=== PATIENT | female | born 1955 | race Caucasian/White ===

== ENCOUNTER 2019-07-30 17:37 | Inpatient (IN) | payer OTHER ==
[~2019-07-30] VITALS: Ht 165.1 cm; Wt 51.7 kg
[~2019-07-30 17:37] MED LIST: ASPI81CH PO; ATOR40TA PO; CEFP200 PO; DIPATR PO; DOCU100 PO; DOXY100 PO; FIBE4P PO; FLUO10 PO; FLUO20 PO; GUAI600T33 PO; HYDACE5 PO; LAVAP17G PO; LISI20 PO; Lopressor 50 mg50 MG PO; METO25ER PO; METO50 PO; PARO20 PO; PRED10 PO; Percocet 10-321 EACH PO; RXHYDACE PO; SACC250C PO; VITAMIN D-32000 UNIT PO; Zofran Odt4 MG SL
[2019-07-30 18:00] LABS: BASOPHILS ABSOLUTE AUTO 0.05 K/mm3 (0.00-0.23); BASOPHILS PERCENT AUTO 1 % (0-2); EOSINOPHILS ABSOLUTE AUTO 0.01 K/mm3 (0.00-0.68); EOSINOPHILS PERCENT AUTO 0 % (0-6); Hematocrit 48.2 % (33.0-51.0); Hemoglobin 15.7 g/dL (11.5-16.0); IMMATURE GRAN ABSOLUTE AUTO 0.04 K/mm3 (0.00-0.10); IMMATURE GRAN PERCENT AUTO 0 % (0-1); LYMPHOCYTES PERCENT AUTO 13 % (21-46); MONOCYTES ABSOLUTE AUTO 1.02 K/mm3 (0.16-1.47); MONOCYTES PERCENT AUTO 10 % (4-13); Mean Corpuscular HGB 29.6 pg (26.0-34.0); Mean Corpuscular HGB Conc 32.6 g/dL (31.5-36.5); Mean Corpuscular Volume 91 fL (80-100); Mean Platelet Volume 11.5 fL (9.1-12.4); NEUTROPHILS ABSOLUTE AUTO 7.77 K/mm3 (1.96-9.15); NEUTROPHILS PERCENT AUTO 76 % (41-73); Platelet Count 242 K/mm3 (150-400); RDW Coefficient Variation 14.4 % (11.7-14.2); RDW Standard Deviation 48.4 fL (35.1-46.3); Red Blood Cell Count 5.31 M/mm3 (3.80-5.20); White Blood Cell Count 10.19 K/mm3 (4.00-11.30)
[2019-07-30 18:11] LABS: Source, Urine Catheter
[2019-07-30 18:14] LABS: Appearance, Urine Hazy (Clear); Blood, Urine 4+ (Neg); Color, Urine Yellow (P-Yellow); Glucose Qualitative, Urine Neg (Neg); Ketones, Urine 1+ (Neg); Leukocyte Esterase, Urine 3+ (Neg); Nitrite, Urine Neg (Neg); Protein, Urine 4+ (Neg); Urobilinogen, Urine 1+ (Normal)
[2019-07-30 18:20] LABS: Bilirubin, Urine 1+ (Neg)
[2019-07-30 18:21] LABS: White Blood Cells, Urine TNTC /hpf (0-5)
[2019-07-30 18:22] LABS: Bacteria Many /hpf; Squamous Epithelial Cells Few /hpf (Few); Transitional Epithelial Cells Few /hpf (0-Rare)
[2019-07-30 18:24] LABS: Alanine Aminotransfer (ALT/SGP 15 U/L (12-78); Albumin/Globulin Ratio 1.2 (0.8-1.8); Alk Phos 128 U/L (50-136); Anion Gap 8 mmol/L (6-16); Aspartate Aminotrans (AST/SGOT 25 U/L (12-37); Bilirubin, Total 1.6 mg/dL (0.1-1.0); Blood Urea Nitrogen 15 mg/dL (8-24); Bun/Creatinine Ratio 14.2 (12.0-20.0); CO2, Blood 26 mmol/L (21-32); Calcium, Blood 9.6 mg/dL (8.5-10.1); Chloride, Blood 102 mmol/L (98-108); Creatinine, Blood 1.06 mg/dL (0.40-1.00); Ethanol (Alcohol), Blood, Med <3 mg/dL; Globulin, Blood 3.3 g/dL (2.2-4.0); Glomerular Filtration Rate 55 (60-); Glucose, Blood 133 mg/dL (70-99); Sodium, Blood 136 mmol/L (136-145); Total Protein, Blood 7.3 g/dL (6.4-8.2)
[2019-07-30 18:27] LABS: International Normalized Ratio 1.19; Prothrombin Time Results 12.4 Sec (9.7-11.5)
[2019-07-30 18:30] LABS: Creatine Kinase MB 1.6 ng/mL (0.0-3.6); Creatine Kinase MB Index 1.2 (0.0-4.0)
[2019-07-30 18:31] LABS: U Amphetamine Screen Not Detected; U Barbituate Screen Not Detected; U Benzodiazapine Screen Not Detected; U Buprenorphine Screen Not Detected; U Cannabinoids Screen Not Detected; U Cocaine Screen Not Detected; U Methadone Screen Not Detected; U Methamphetamine Screen Not Detected; U Opiates Screen Not Detected; U Oxycodone Screen Not Detected; U Phencyclidine Screen Not Detected; U Propoxyphene Screen Not Detected
[2019-07-31] MEDS ORDERED: METO100ER PO (08:05)
[2019-07-31] MEDS ORDERED: TAMS.4ER PO (15:20)
[2019-07-31] MEDS ORDERED: DOC250 PO (15:22)
[2019-07-31] MEDS ORDERED: VITAMIN D31000 UNI2 PO (15:24)
--- NOTE | 2019-07-31 17:30 | NUR ---
SHIFT SUMMARY 1310 PT RECEIVED FROM ER. ALERT TO SELF ONLY, FOLLOWING SOME COMMANDS OFF AND ON. DENIES PAIN THROUGHOUT THE DAY. LUNG SOUNDS CLEAR, DIMINISHED BASES. NSR WITH PVCs NOTED ON TELEMETRY, RATE 70s, MURMUR NOTED ON AUSCULTATION. WEAKNESS TO BUE AND BLE, WEAKNESS IS GREATER ON THE LEFT SIDE D/T HX OF CVA IN JANUARY PER FAMILY. ATTENDS IN PLACE. PT SLEEPING IN BED THIS AFTERNOON. WILL CONTINUE TO MONITOR AND REPORT OFF.
--- NOTE | 2019-07-31 20:42 | NUR ---
Assumed care of pt at approx 1900. Upon initial assessment, pt lying HOB at 15, eyes closed. Pt not repsonsive to verbal stim at initial assessment. Opens eyes to strong touch, does not need pain to respond. VS show HTN. PM dose of metoprolol given, will continue to monitor BP. All other VSS. Pt minimally alert, not oriented. When asked for name and date of , pt stares ahead and does not respond. When asked "is your name Mery?" pt states "Taco". When asked for pt replies "no". Pt does not answer appropriately to questions, follows some simple commands but not all. Pt with dry mucous membranes. Will call provider and suggest IV fluids. Will update with further changes. Monitoring and providing care per orders. See shift assessment for detailed assessment.
[2019-08-01 04:37] LABS: BASOPHILS ABSOLUTE AUTO 0.05 K/mm3 (0.00-0.23); BASOPHILS PERCENT AUTO 1 % (0-2); EOSINOPHILS ABSOLUTE AUTO 0.07 K/mm3 (0.00-0.68); EOSINOPHILS PERCENT AUTO 1 % (0-6); Hematocrit 42.6 % (33.0-51.0); Hemoglobin 13.9 g/dL (11.5-16.0); IMMATURE GRAN ABSOLUTE AUTO 0.01 K/mm3 (0.00-0.10); IMMATURE GRAN PERCENT AUTO 0 % (0-1); LYMPHOCYTES ABSOLUTE AUTO 1.81 K/mm3 (0.84-5.20); LYMPHOCYTES PERCENT AUTO 27 % (21-46); MONOCYTES ABSOLUTE AUTO 0.77 K/mm3 (0.16-1.47); MONOCYTES PERCENT AUTO 11 % (4-13); Mean Corpuscular HGB 29.5 pg (26.0-34.0); Mean Corpuscular HGB Conc 32.6 g/dL (31.5-36.5); Mean Corpuscular Volume 90 fL (80-100); Mean Platelet Volume 12.2 fL (9.1-12.4); NEUTROPHILS ABSOLUTE AUTO 4.04 K/mm3 (1.96-9.15); NEUTROPHILS PERCENT AUTO 60 % (41-73); Platelet Count 198 K/mm3 (150-400); RDW Coefficient Variation 14.3 % (11.7-14.2); RDW Standard Deviation 47.8 fL (35.1-46.3); Red Blood Cell Count 4.71 M/mm3 (3.80-5.20); White Blood Cell Count 6.75 K/mm3 (4.00-11.30)
[2019-08-01 04:55] LABS: Albumin, Blood 3.2 g/dL (3.4-5.0); Albumin/Globulin Ratio 1.1 (0.8-1.8); Bilirubin, Total 0.9 mg/dL (0.1-1.0); Bun/Creatinine Ratio 21.5 (12.0-20.0); Calcium, Blood 8.7 mg/dL (8.5-10.1); Creatinine, Blood 1.07 mg/dL (0.40-1.00); Total Protein, Blood 6.2 g/dL (6.4-8.2)
--- NOTE | 2019-08-01 06:23 | NUR ---
Shift Summary Pt with improving mental status this shift. As shift continued, pt became more alert, remains not oriented to place, time/date, event. Pt only oriented to person, cannot recall . Pt continues to respond inappropriately to questions, does not follow directions well, laughs inappropriately very suddenly. The noteable improvement this shift is her alertness and ability to track a conversation, however she does not participate in the conversation. VSS. Pt restless when awake, grabbing at lines. Pt pulled PIV at approx 0545, blood all over pt and bedding. Bed bath given, new IV placed, IV fluids not infusing at this time because pt is currently aggitated and refusing IV fluids. Will pass on to day RN that approx 400 ml left to be infused per orders. Pt incont of bowel/bladder. One complete saturation of attends this shift. Breathing remains without acute changes this shift. Pt with K+ of 3.0 this shift, MD notified and orders recieved for 40meq PO x1. Pt currently refusing PO medication. Will pass on to day RN that medication is yet to be given. Will continue to monitor and provide care per orders until Day RN assumes care.
--- NOTE | 2019-08-01 08:00 | NUR ---
PT RESTING IN BED THIS AM. RESPONDS TO VERBAL STIMULI, BUT IS LETHARGIC AND FALLS BACK TO SLEEP EASILY. ORIENTED TO SELF ONLY, BUT ABLE TO TELL THIS RN FIRST NAME AND MONTH. FOLLOWING COMMANDS APPROPRIATELY. LUNG SOUNDS CLEAR, DIMINISHED BASES. NSR RATE 70s ON TELEMETRY, MURMUR NOTED. WEAKNESS NOTED THROUGHOUT, BUT IMPROVED FROM YESTERDAY. WILL CONTINUE TO MONITOR. CALL LIGHT IN REACH.
--- NOTE | 2019-08-01 10:08 | NUR ---
FAMILY CONTACT SPOKE TO SISTER RICHARD OVER THE PHONE AND PROVIDED AN UPDATE. PT RESTING IN BED WITH EYES CLOSED, RESPIRATIONS EVEN AND UNLABORED.
--- NOTE | 2019-08-01 17:48 | NUR ---
SHIFT SUMMARY PT RESTING IN BED THROUGHOUT THE DAY. VSS. MORE ALERT TODAY, ORIENTED TO SELF ONLY. WEAKNESS TO BLE AND BUE, BUT STRONGER THAN YESTERDAY. FOLLOWING COMMANDS APPROPRIATELY THE MAJORITY OF TIME, BUT NEEDS REPETITION TO FOLLOW COMMANDS. PT HAD A VERY GOOD APPETITE TODAY. PT UNABLE TO TOLERATE MRI D/T CONFUSION AND ANXIETY, PER NIGHT SHIFT SUPERVISOR PT BECAME COMBATIVE AND CLIMBED OUT OF THE MRI MACHINE. LUNG SOUNDS CLEAR, DIMINISHED BASES. NSR RATE 70s PER TELEMETRY, MURMUR NOTED ON AUSCULTATION. UPDATES GIVEN TO SISTER VIA PHONE. WILL CONTINUE TO MONITOR AND REPORT OFF TO CHANGE COORDINATOR RN.
--- NOTE | 2019-08-01 19:49 | NUR ---
Phone call recieved from Pt's Nephews ex , Clarissa, requesting information on pt. Pt unable at this time to verify if information can be given to this person, no verbal release of information has been signed d/t pt mentation status. Relative of Pt instructed to speak with pt's sister for information regarding pt. Relative verbalized understanding, cooperative and kind with instruction.
--- NOTE | 2019-08-01 22:16 | NUR ---
Provider Remigio Amos called regarding IV Potassium 20meq that was ordered at approx 1100, not documented as given. Provider notified of PO K+ 40 meq given at approx 0930. Provider notified of K+ lab result of 3.0 at at approx 0400, no K+ recheck ordered or obtained this day. Provider Dandre states to give IV K+ 20meq to pt and states no lab recheck necessary at this time. Will give per orders.
--- NOTE | 2019-08-02 01:22 | NUR ---
Update: Pt remains with improved neuro status compared to previous mine shifter, she is alert and oriented to person, family, surroundings. Pt is impulsive and restless this shift, pulling at BITA IV frequently. Pt redirecatable, but foregets redirection quickly. Interventions in place to minimize risk of pt pulling out IV such at coban in place to move tubing out of sight, TV for distraction, frequent rounding to ensure pt safety. K+ infusing at this time per orders. No acute declines to note at this time. Will continue monitoring and providing care per orders.
--- NOTE | 2019-08-02 03:57 | NUR ---
HTN and TACHYCARDIA PT IN SINUS TACH BETWEEN 110-125 AT APPROX 0205; ASYMPTOMATIC. THIS RN ASSESSED VITALS AT APPROX 0330; HTN NOTED AT 190/109, HR REMAINS TACHYCARDIC. FLUIDS ON STANDBY, AND LABETOLOL GIVEN PER ORDERS WITH NO IMPROVEMENT. CALL OUT TO DR. LU. AWAITING CALL BACK AT THIS TIME.
--- NOTE | 2019-08-02 05:06 | NUR ---
SHIFT SUMMARY Pt with eventful night. To note: change in heart rhtyhm from NSR in 70's to sinus tach in 120's touching 130 at times. Pt also with HTN as documented. HTN has since resolved. Pt back and forth with HR, at 0509 pt converted back to NSR at 70, but pt aggitated from attends change quickly after and back to 110's. This pt has been attempting to exit the bed, setting off the bed alarm frequently this night. Pt redirected multiple times but does not comprehend or retain redirection. This RN, the PCT, and the blister rust eradicator have been in with pt consistantly this shift attempting to keep pt in bed and safe. Pt with frequent attends changes d/t incont. Each attends change have been very saturated. All other VSS, pt remains alert and oriented as documented, no changes noted to mentation apart from previously noted in shift notes. Pt has not slept this shift. Will continue to monitor pt, provide care per orders and clinical judegment until day RN assumes care.
[2019-08-02 05:48] LABS: Anion Gap 7 mmol/L (6-16); Blood Urea Nitrogen 17 mg/dL (8-24); Bun/Creatinine Ratio 19.7 (12.0-20.0); CO2, Blood 24 mmol/L (21-32); Calcium, Blood 8.5 mg/dL (8.5-10.1); Chloride, Blood 108 mmol/L (98-108); Creatinine, Blood 0.87 mg/dL (0.40-1.00); Glomerular Filtration Rate >60 (60-); Glucose, Blood 99 mg/dL (70-99); Potassium, Blood 3.4 mmol/L (3.5-5.5); Sodium, Blood 139 mmol/L (136-145)
--- NOTE | 2019-08-02 09:31 | NUR ---
PT REMAINS ASLEEP, PT WITH A RESTLESS NIGHT, WILL ADMINISTER 0900 MEDICATIONS WHEN PT AWAKES PT WAS VERY CONFUSED T/O THE NIGHT TO DECREASE ASIPRATION RISK
--- NOTE | 2019-08-02 18:41 | NUR ---
SHIFT NOTE PT WAS UP TO CHAIR FOR SEVERAL HOURS TODAY WHICH WAS TOLERATED WEL. PT USED CALL LIGHT NEED AND APPRORIATE, TAG ALARM WAS IN PLACE BUT PT DID NOT ATTEMPT TO GET OUT OF CHAIR, CALLED FOR ASSITANCE WHEN SHE WAS READY TOP GET BACK TO BED. PT DID EXPRESS THAT SHE KNEW HER BIRTHDAY, HER FULL NAME AND THAT SHE WAS IN THE HOSPITAL TODAY. PT WAS CALLING OUT FOR HER DOG, IS QUITE CONCERNED THAT HER DOG NASRIN HAS GONE MISSING, PT IS REASSURED BY THIS RN THAT DOG IS BEING CARED FOR. PT OTHERWISE SLEPT T/O THE DINNER. ATE A GOOD PORTION OF HER BREAKFAST AND LLUNCH, DID REFUSE DINNER TRAY STS THAT SHE WANTS TO SLEEP. VITAL WERE THEN ASSESSED AND PT TUCKED INTO BED. UPON WAKING THIS AM PT WAS CONFUSED AND BATTING AT STAFF WHILE ATTEMPTING TO CARE FOR HER, BUT SHE WAS AWAKE FOR A WHILE HER MENTATION SEEMED TO CLEAR. IV REMAINS SHIELDED WITH COBAN TO AVOID HER PULLING AT IT, ALTHOUGH PT WAS NOT OBSERVED PULLING AT IT DURING THIS SHIFT. CONNIE CHEEK DID CONTACT APS PT HAS BEEN LIVING ALONE WHILE CAREGIVER IS OUT OF STATE, APS DID NOT RETURN CALL TO MY KNOWLEDGE TODAY. VSS DURING THIS SHIFT.
--- NOTE | 2019-08-03 06:22 | NUR ---
ASSUMED CARE APPROXIMATELY 191; PT ALERT AND ORIENTED TO SELF; CONFUSED; AT TIMES SEEMS APPREHENSIVE OF CARE; PT INCONTINENT W/ BRIEF IN PLACE; PT ON RA W/ O2 SATS >90; PT C/O BP CUFF AND TENSES ARMS AND PULLS AWAY; RADIAL CUFF PLACED AND VITAL SIGN ASSESSMENT BECAME EASIER W/ LESS RESISTANCE; PT TURNED SELF IN NIGHT; SLEPT SEVERAL HOURS; BED ALARM ON; CALL LIGHT IN REACH; BED IN LOWEST POSITION; WILL CONTINUE TO MONITOR AND ASSESS UNTIL DAY SHIFT RN.
[2019-08-03 06:39] LABS: BASOPHILS ABSOLUTE AUTO 0.06 K/mm3 (0.00-0.23); BASOPHILS PERCENT AUTO 1 % (0-2); EOSINOPHILS ABSOLUTE AUTO 0.37 K/mm3 (0.00-0.68); EOSINOPHILS PERCENT AUTO 5 % (0-6); Hematocrit 42.8 % (33.0-51.0); IMMATURE GRAN ABSOLUTE AUTO 0.01 K/mm3 (0.00-0.10); IMMATURE GRAN PERCENT AUTO 0 % (0-1); LYMPHOCYTES ABSOLUTE AUTO 2.04 K/mm3 (0.84-5.20); LYMPHOCYTES PERCENT AUTO 30 % (21-46); MONOCYTES ABSOLUTE AUTO 0.66 K/mm3 (0.16-1.47); MONOCYTES PERCENT AUTO 10 % (4-13); Mean Corpuscular HGB 29.4 pg (26.0-34.0); Mean Corpuscular HGB Conc 32.7 g/dL (31.5-36.5); Mean Corpuscular Volume 90 fL (80-100); NEUTROPHILS ABSOLUTE AUTO 3.74 K/mm3 (1.96-9.15); NEUTROPHILS PERCENT AUTO 54 % (41-73); Platelet Count 200 K/mm3 (150-400); RDW Coefficient Variation 14.4 % (11.7-14.2); RDW Standard Deviation 47.2 fL (35.1-46.3); Red Blood Cell Count 4.77 M/mm3 (3.80-5.20); White Blood Cell Count 6.88 K/mm3 (4.00-11.30)
[2019-08-03 07:01] LABS: Bun/Creatinine Ratio 19.6 (12.0-20.0); Calcium, Blood 8.7 mg/dL (8.5-10.1); Creatinine, Blood 1.07 mg/dL (0.40-1.00); Potassium, Blood 3.8 mmol/L (3.5-5.5)
[2019-08-03] MEDS ORDERED: CEFU500T30 PO (13:00)
== END 2019-08-03 15:45 | disposition home or self-care (01) | DRG 64 ==
LOC: ER 17:37 → ERHOLD 22:03 → PCU 22:03
PROVIDERS: Emergency Medicine; Internal Medicine; ADMIT Internal Medicine
DX: I63.9 Cerebral infarction, unspecified (principal); G92 Toxic encephalopathy; N39.0 Urinary tract infection, site not specified; E44.0 Moderate protein-calorie malnutrition; Z68.1 Body mass index [BMI] 19.9 or less, adult; Q21.1 Atrial septal defect; I16.0 Hypertensive urgency; B96.20 Unspecified Escherichia coli [E. coli] as the cause of diseases classified elsewhere; N18.3 Chronic kidney disease, stage 3 (moderate); E87.6 Hypokalemia; F03.90 Unspecified dementia, unspecified severity, without behavioral disturbance, psychotic disturbance, mood disturbance, and anxiety; E78.5 Hyperlipidemia, unspecified; F17.200 Nicotine dependence, unspecified, uncomplicated; Z86.73 Personal history of transient ischemic attack (TIA), and cerebral infarction without residual deficits; Z88.1 Allergy status to other antibiotic agents; Z88.0 Allergy status to penicillin; Z88.2 Allergy status to sulfonamides; Z79.82 Long term (current) use of aspirin; Z79.899 Other long term (current) drug therapy; I13.10 Hypertensive heart and chronic kidney disease without heart failure, with stage 1 through stage 4 chronic kidney disease, or unspecified chronic kidney disease
CPT/HCPCS: 36415; 70450; 70551; 71046; 80048; 80053; 81001; 82550; 82553; 84443; 85025; 85610; 85651; 85730; 86140; 87077; 87086; 87186; 93005; 93010; 93306; 93880; 96365-59; 96375-59; 96376-59; 99285-25; G0480; J0360; J0696; J1650; J3480; J7030; J7050

== ENCOUNTER 2020-02-29 12:37 | Inpatient (IN) | payer OTHER ==
[~2020-02-29] VITALS: Ht 165.1 cm; Wt 52.3 kg
[~2020-02-29 12:37] MED LIST changes: -ASPI81CH PO; +Aspirin EC81 MG PO; +CEFU500T30 PO; +DOC250 PO; +METO100ER PO; +TAMS.4ER PO; +VITAMIN D31000 UNI1 PO
[2020-02-29 13:15] LABS: BASOPHILS ABSOLUTE AUTO 0.03 K/mm3 (0.00-0.23); BASOPHILS PERCENT AUTO 0 % (0-2); EOSINOPHILS ABSOLUTE AUTO 0.02 K/mm3 (0.00-0.68); EOSINOPHILS PERCENT AUTO 0 % (0-6); Hematocrit 42.9 % (33.0-51.0); Hemoglobin 14.5 g/dL (11.5-16.0); IMMATURE GRAN ABSOLUTE AUTO 0.04 K/mm3 (0.00-0.10); IMMATURE GRAN PERCENT AUTO 0 % (0-1); LYMPHOCYTES ABSOLUTE AUTO 1.47 K/mm3 (0.84-5.20); LYMPHOCYTES PERCENT AUTO 12 % (21-46); MONOCYTES ABSOLUTE AUTO 1.06 K/mm3 (0.16-1.47); MONOCYTES PERCENT AUTO 9 % (4-13); Mean Corpuscular HGB Conc 33.8 g/dL (31.5-36.5); Mean Corpuscular Volume 92 fL (80-100); Mean Platelet Volume 11.6 fL (9.1-12.4); NEUTROPHILS PERCENT AUTO 79 % (41-73); Platelet Count 225 K/mm3 (150-400); RDW Coefficient Variation 13.1 % (11.7-14.2); RDW Standard Deviation 43.8 fL (35.1-46.3); Red Blood Cell Count 4.68 M/mm3 (3.80-5.20); White Blood Cell Count 12.42 K/mm3 (4.00-11.30)
[2020-02-29 13:32] LABS: International Normalized Ratio 1.05; Prothrombin Time Results 11.2 Sec (9.7-11.5)
[2020-02-29 13:42] LABS: Alanine Aminotransfer (ALT/SGP 17 U/L (12-78); Albumin, Blood 4.3 g/dL (3.4-5.0); Albumin/Globulin Ratio 1.3 (0.8-1.8); Alk Phos 118 U/L (50-136); Anion Gap 9 mmol/L (6-16); Aspartate Aminotrans (AST/SGOT 17 U/L (12-37); Bilirubin, Total 0.9 mg/dL (0.1-1.0); Blood Urea Nitrogen 20 mg/dL (8-24); Bun/Creatinine Ratio 21.7 (12.0-20.0); CO2, Blood 28 mmol/L (21-32); Calcium, Blood 9.1 mg/dL (8.5-10.1); Chloride, Blood 103 mmol/L (98-108); Creatinine, Blood 0.92 mg/dL (0.40-1.00); Globulin, Blood 3.3 g/dL (2.2-4.0); Glomerular Filtration Rate >60 (60-); Glucose, Blood 116 mg/dL (70-99); Potassium, Blood 3.8 mmol/L (3.5-5.5); Sodium, Blood 140 mmol/L (136-145); Total Protein, Blood 7.6 g/dL (6.4-8.2)
[2020-03-01 03:47] LABS: BASOPHILS ABSOLUTE AUTO 0.03 K/mm3 (0.00-0.23); BASOPHILS PERCENT AUTO 0 % (0-2); EOSINOPHILS PERCENT AUTO 0 % (0-6); Hematocrit 43.2 % (33.0-51.0); IMMATURE GRAN ABSOLUTE AUTO 0.05 K/mm3 (0.00-0.10); IMMATURE GRAN PERCENT AUTO 0 % (0-1); LYMPHOCYTES ABSOLUTE AUTO 1.18 K/mm3 (0.84-5.20); LYMPHOCYTES PERCENT AUTO 9 % (21-46); MONOCYTES ABSOLUTE AUTO 0.97 K/mm3 (0.16-1.47); MONOCYTES PERCENT AUTO 7 % (4-13); Mean Corpuscular HGB 31.3 pg (26.0-34.0); Mean Corpuscular HGB Conc 34.7 g/dL (31.5-36.5); Mean Corpuscular Volume 90 fL (80-100); Mean Platelet Volume 11.3 fL (9.1-12.4); NEUTROPHILS ABSOLUTE AUTO 11.72 K/mm3 (1.96-9.15); NEUTROPHILS PERCENT AUTO 84 % (41-73); Platelet Count 233 K/mm3 (150-400); RDW Coefficient Variation 12.8 % (11.7-14.2); RDW Standard Deviation 41.4 fL (35.1-46.3); White Blood Cell Count 13.95 K/mm3 (4.00-11.30)
[2020-03-01 04:11] LABS: Anion Gap 5 mmol/L (6-16); Blood Urea Nitrogen 20 mg/dL (8-24); Bun/Creatinine Ratio 23.8 (12.0-20.0); CO2, Blood 29 mmol/L (21-32); CPK Creatine Kinase 236 U/L (26-193); Calcium, Blood 9.2 mg/dL (8.5-10.1); Chloride, Blood 103 mmol/L (98-108); Creatinine, Blood 0.84 mg/dL (0.40-1.00); Glomerular Filtration Rate >60 (60-); Glucose, Blood 137 mg/dL (70-99); Potassium, Blood 3.5 mmol/L (3.5-5.5); Sodium, Blood 137 mmol/L (136-145)
[2020-03-01 04:13] LABS: Thyroid Stimulating Hormone 0.573 uIU/mL (0.360-4.800)
--- NOTE | 2020-03-01 05:04 | NUR ---
SHIFT SUMMARY PT ALERT AT TIMES; COMMUNICATES AT TIMES; STATES WIPES ARE COLD WHEN CHANGING; TREATED BP W/ HYDRALYZINE 1X THIS SHIFT; NSR NOTED ON TELE W/ HR 75-89; O2 SATS >93 ON RA; LUNG SOUNDS CLEAR; C/O HEADACHE; PROVIDER NOTIFIED; NEW ORDER FOR 1X TORADOL IV GIVEN PER EMAR; PT INCONTINENT; ATTENDS IN PLACE; FOWL ODOR NOTED; NO DISTRESS NOTED; NO ACUTE CHANGES THIS SHIFT; CALL LIGHT IN REACH; BED IN LOWEST POSITION; BED ALARM ON; WILL CONTINUE TO MONITOR CLOSELY UNTIL HAND OFF TO DAY SHIFT RN.
--- NOTE | 2020-03-01 11:18 | NUR ---
TAKEN TO MRI.
--- NOTE | 2020-03-01 14:06 | NUR ---
SLEEPING ON RIGHT SIDE. AWAKES TO VERBAL OR PHYSICAL STIMULATION.
--- NOTE | 2020-03-01 16:23 | NUR ---
REFUSES BLADDER SCAN AGAIN, STATES "THERE'S NO POINT". PT STATES DOES NOT FEEL LIKE HE HAS TO URINATE AT THIS TIME.
--- NOTE | 2020-03-01 17:00 | NUR ---
SHIFT SUMMARY; SLEEPING THROUGHOUT MOST OF SHIFT. UP TO RECLINER WITH PT THIS AM. Q2 REPOSITIONING AND NEURO CHECKS. LEFT SIDED WEAKNESS AND SLIGHT LEFT SIDED FACIAL DROOP REMAINED CONSISTENT THROUGHOUT DAY. INCONTINENT SEVERAL TIMES OF URINE WITH ATTENDS CHANGED.
--- NOTE | 2020-03-01 18:03 | NUR ---
ASSUMED CAREOF PT AT APPROX 1745; WILL CONTINUE TO MONITOR UNITL REPORT GIVEN TO ONCOMING RN.
--- NOTE | 2020-03-01 19:38 | NUR ---
ASSUMED CARE OF PT AT 1745; PT TOOK OFF BIPAP AND PLACE AIRVO ON SELF; PT DESATURATED TO 84-86% AND AIRVO ALARMING MAX O2; PLACED PT BACK ON BIPAP AND 100% FIO2 TO RECOVER PT WITH RT AT BEDSIDE; TITRATED FIO2 TO 80%. PT REMAINED ON BIPAP FOR APPROX AN HOUR; PLACED BACK ON AIRVO AND REQUESTING DINNER TRAY; SPO2 90-95%. NO OTHER CHANGES NOTED; REPORT GIVEN TO ONCOMING RN.
--- NOTE | 2020-03-02 05:09 | NUR ---
SHIFT SUMMARY PT HAS BEEN ORIENTED X2. ABLE TO COMMUNICATE & VOICE NEEDS, SHE IS TOLERATING PO INTAKE. INCONTINENT OF URINE, ATTENDS CHANGED PRN, URINE IS ODOROUS. PO FLUIDS ENC. HTN NOTED, PRN HYDRALIZINE GIVEN X1, BP LOWERED FOR A SHORT TIME AND STARTED TO INCREASE AGAIN, OSPITALIST WAS NOTIFIED. ORDER WAS GIVEN TO NO TREAT UNTIL SYSTOLIC WAS >200. PT IS CURRENTLY RESTING QUIETLY, ON RA, REPOSITIONED Q2 & PRN. LR INFUSING PER EMAR @ 50 ML/HR. CALL LIGHT IN REACH. WCTM.
--- NOTE | 2020-03-02 18:36 | NUR ---
SHIFT SUMMARY PT TRANSFERRED TO UNIT AT 1700, AWAKE, ALERT, PLEASANT & COOPERATIVE. MANJEET PO PUREE DINNER; 1:1 FEEDER, SHIPWRIGHT SUPERVISOR ASSIST. INCONTINENT OF BOWEL & BLADDER; ATTENDS ON. LR @ 50 MLS/HR. WILL REPORT TO ONCOMING ABEBE RN.
--- NOTE | 2020-03-03 03:13 | NUR ---
SHIFT SUMMARY ASSUMED CARE OF PT AT 1900. PT IS ALERT BUT NOT ORIENTED AT ALL. PT IS TALKING TO THE WALL AND HER SENTENCES ARE NONSENSICAL. PT PULLED OUT IV AND ATTEMPTS TO GET OUT OF BED MULTPILE TIMES DURING THE NIGHT. HEART SOUNDS HAVE A MURMUR, DENIES CP AT THIS TIME. LUNG SOUNDS HAVE CRACKLES AT THE BASES, DENIES SOB AT THIS TIME. PT WAS INCONTINET DURING THE NIGHT. PT WILL BE TRANFERED TO THE BACK WALSH DUE TO BED EXITS. CALL LIGHT IN ROOM, BED IN LOWEST POSITION, WILL CONTINUE TO MONITOR UNTIL DAYSHIFT NURSE ARRIVES.
--- NOTE | 2020-03-03 03:25 | NUR ---
ASSUMPTION OF CARE REPORT TAKEN FROM NICOLE BAKER RN TO ASSUME CARE OF PT AT THIS TIME. PT MOVED FROM 305 TO [address] PT RESTING IN BED WITHOUT DISTRESS. BED IN LOWEST POSITION, CALL LIGHT WITHIN REACH. WILL CONTINUET TO MONITOR AND REPORT TO ONCOMING RN.
--- NOTE | 2020-03-03 04:55 | NUR ---
ON CAMERA PT WIGGLES HER WAY TOWARDS THE EDGE OF THE BED PER NICOLE ORTIZ RN. PT PLACED ON CAMERA FOR HIGH FALL RISK.
[2020-03-03 08:37] LABS: Anion Gap 5 mmol/L (6-16); Blood Urea Nitrogen 22 mg/dL (8-24); Bun/Creatinine Ratio 25.3 (12.0-20.0); CO2, Blood 30 mmol/L (21-32); Calcium, Blood 9.1 mg/dL (8.5-10.1); Chloride, Blood 104 mmol/L (98-108); Creatinine, Blood 0.87 mg/dL (0.40-1.00); Glomerular Filtration Rate >60 (60-); Glucose, Blood 104 mg/dL (70-99); Potassium, Blood 3.7 mmol/L (3.5-5.5); Sodium, Blood 139 mmol/L (136-145)
[2020-03-03 08:39] LABS: Hematocrit 41.8 % (33.0-51.0); Hemoglobin 14.5 g/dL (11.5-16.0)
--- NOTE | 2020-03-03 16:22 | NUR ---
DISCHARGE FACILITY DISCHARGE TO [facility]. PATIENT TRANPORTED VIA WHEELCHAIR TRANSPORT. DISCHARGE PACKET GIVEN TO DRUM WORKER. BELONGINGS WITH PATIENT. REPORT CALLED TO RECIEVING NURSE ROSALINA AT [facility].
== END 2020-03-03 16:15 | DRG 64 ==
LOC: ER 12:37 → PCU 17:50 → ICUE 17:50 → PCU 18:30 → ICUE 03-01 15:32 → MEDS 03-02 17:10
PROVIDERS: Emergency Medicine; ADMIT Internal Medicine
DX: I63.531 Cerebral infarction due to unspecified occlusion or stenosis of right posterior cerebral artery (principal); G92 Toxic encephalopathy; I25.10 Atherosclerotic heart disease of native coronary artery without angina pectoris; F81.9 Developmental disorder of scholastic skills, unspecified; R54 Age-related physical debility; I10 Essential (primary) hypertension; E78.5 Hyperlipidemia, unspecified; R56.9 Unspecified convulsions; F17.200 Nicotine dependence, unspecified, uncomplicated; Z86.73 Personal history of transient ischemic attack (TIA), and cerebral infarction without residual deficits; Z88.1 Allergy status to other antibiotic agents; Z88.0 Allergy status to penicillin; Z88.2 Allergy status to sulfonamides; Z79.82 Long term (current) use of aspirin; Z95.1 Presence of aortocoronary bypass graft
CPT/HCPCS: 36415; 70450; 70551; 80048; 80053; 82550; 84443; 85014; 85018; 85025; 85610; 92526; 92610; 93005; 93010; 96374; 97116; 97162; 97166; 97530; 99285-25; A9270; A9270-GY; J0360; J1650; J1885; J1953; J7120

== ENCOUNTER 2021-05-11 11:38 | Emergency (ER) | payer OTHER ==
[~2021-05-11] VITALS: Ht 165.1 cm; Wt 63.5 kg
[2021-05-11 13:39] LABS: Albumin, Blood 3.9 g/dL (3.4-5.0); Bilirubin, Total 0.8 mg/dL (0.1-1.0); Calcium, Blood 9.4 mg/dL (8.5-10.1); Creatinine, Blood 1.28 mg/dL (0.40-1.00); Globulin, Blood 3.9 g/dL (2.2-4.0); Potassium, Blood 4.4 mmol/L (3.5-5.5); Total Protein, Blood 7.8 g/dL (6.4-8.2)
[2021-05-11 14:08] LABS: BASOPHILS ABSOLUTE AUTO 0.05 K/mm3 (0.00-0.23); BASOPHILS PERCENT AUTO 1 % (0-2); EOSINOPHILS ABSOLUTE AUTO 0.13 K/mm3 (0.00-0.68); EOSINOPHILS PERCENT AUTO 2 % (0-6); Hematocrit 41.9 % (33.0-51.0); Hemoglobin 14.5 g/dL (11.5-16.0); IMMATURE GRAN ABSOLUTE AUTO 0.01 K/mm3 (0.00-0.10); IMMATURE GRAN PERCENT AUTO 0 % (0-1); LYMPHOCYTES ABSOLUTE AUTO 1.94 K/mm3 (0.84-5.20); LYMPHOCYTES PERCENT AUTO 28 % (21-46); MONOCYTES ABSOLUTE AUTO 0.63 K/mm3 (0.16-1.47); MONOCYTES PERCENT AUTO 9 % (4-13); Mean Corpuscular HGB 31.8 pg (26.0-34.0); Mean Corpuscular HGB Conc 34.6 g/dL (31.5-36.5); Mean Corpuscular Volume 92 fL (80-100); NEUTROPHILS ABSOLUTE AUTO 4.26 K/mm3 (1.96-9.15); NEUTROPHILS PERCENT AUTO 61 % (41-73); NRBC ABSOLUTE 0.02 K/mm3 (0.00-0.02); NRBC Auto 0.3 /100 WBC (0.0-0.2); RDW Coefficient Variation 14.7 % (11.7-14.2); RDW Standard Deviation 49.7 fL (35.1-46.3); Red Blood Cell Count 4.56 M/mm3 (3.80-5.20); White Blood Cell Count 7.02 K/mm3 (4.00-11.30)
[2021-05-11 15:18] LABS: Mean Platelet Volume 12.7 fL (9.1-12.4); Platelet Count 159 K/mm3 (150-400)
[2021-05-11] MEDS ORDERED: Miralax17 GM PO (15:35)
== END 2021-05-11 15:48 | disposition home or self-care (01) ==
LOC: ER 11:38
PROVIDERS: Family Medicine
DX: K59.00 Constipation, unspecified (principal); I25.10 Atherosclerotic heart disease of native coronary artery without angina pectoris; F17.200 Nicotine dependence, unspecified, uncomplicated; Z79.82 Long term (current) use of aspirin; Z79.899 Other long term (current) drug therapy
CPT/HCPCS: 36415; 74018; 80053; 83690; 85025; 99284-25; A9270

== ENCOUNTER 2021-11-17 18:45 | Emergency (ER) | payer OTHER ==
[~2021-11-17] VITALS: Ht 167.6 cm; Wt 63.5 kg
[~2021-11-17 18:45] MED LIST changes: +Miralax17 GM PO
[2021-11-17 19:24] LABS: BASOPHILS ABSOLUTE AUTO 0.03 K/mm3 (0.00-0.23); BASOPHILS PERCENT AUTO 1 % (0-2); EOSINOPHILS ABSOLUTE AUTO 0.02 K/mm3 (0.00-0.68); EOSINOPHILS PERCENT AUTO 0 % (0-6); Hematocrit 40.9 % (33.0-51.0); Hemoglobin 13.7 g/dL (11.5-16.0); IMMATURE GRAN ABSOLUTE AUTO 0.02 K/mm3 (0.00-0.10); IMMATURE GRAN PERCENT AUTO 0 % (0-1); LYMPHOCYTES ABSOLUTE AUTO 1.44 K/mm3 (0.84-5.20); LYMPHOCYTES PERCENT AUTO 29 % (21-46); MONOCYTES ABSOLUTE AUTO 0.75 K/mm3 (0.16-1.47); MONOCYTES PERCENT AUTO 15 % (4-13); Mean Corpuscular HGB 31.1 pg (26.0-34.0); Mean Corpuscular HGB Conc 33.5 g/dL (31.5-36.5); Mean Corpuscular Volume 93 fL (80-100); Mean Platelet Volume 11.2 fL (9.1-12.4); NEUTROPHILS ABSOLUTE AUTO 2.74 K/mm3 (1.96-9.15); NEUTROPHILS PERCENT AUTO 55 % (41-73); Platelet Count 196 K/mm3 (150-400); RDW Coefficient Variation 14.5 % (11.7-14.2); RDW Standard Deviation 49.9 fL (35.1-46.3); Red Blood Cell Count 4.41 M/mm3 (3.80-5.20)
[2021-11-17 19:42] LABS: Albumin, Blood 3.5 g/dL (3.4-5.0); Bilirubin, Total 0.6 mg/dL (0.1-1.0); Bun/Creatinine Ratio 17.1 (12.0-20.0); Calcium, Blood 8.6 mg/dL (8.5-10.1); Creatinine, Blood 1.52 mg/dL (0.40-1.00); Globulin, Blood 3.6 g/dL (2.2-4.0); Potassium, Blood 3.7 mmol/L (3.5-5.5); Total Protein, Blood 7.1 g/dL (6.4-8.2)
[2021-11-17 21:27] LABS: Source, Urine Clean Catch
[2021-11-17 21:35] LABS: Appearance, Urine Hazy (Clear); Bilirubin, Urine Neg (Neg); Blood, Urine 1+ (Neg); Color, Urine Yellow (P-Yellow); Glucose Qualitative, Urine Neg (Neg); Ketones, Urine Neg (Neg); Leukocyte Esterase, Urine 1+ (Neg); Nitrite, Urine Neg (Neg); Protein, Urine 2+ (Neg); Specific Gravity, Urine 1.025 (1.003-1.022); Urobilinogen, Urine 1+ (Normal)
[2021-11-17 22:35] LABS: Bacteria Many /hpf; Squamous Epithelial Cells Few /hpf (Few)
[2021-11-17 22:36] LABS: Hyaline Casts 0-2 /lpf (0-2)
== END 2021-11-17 23:18 | disposition home or self-care (01) ==
LOC: ER 18:45
PROVIDERS: Emergency Medicine; Physician Assistant
DX: R53.1 Weakness (principal); Z88.2 Allergy status to sulfonamides; Z88.0 Allergy status to penicillin; Z79.899 Other long term (current) drug therapy
CPT/HCPCS: 36415; 70450; 80053; 81001; 85025; 87077; 87086; 87186; 93005; 93010; 99285-25

== ENCOUNTER 2021-11-22 14:19 | Inpatient (IN) | payer OTHER ==
[~2021-11-22] VITALS: Ht 160 cm; Wt 63.5 kg
[2021-11-22 15:09] LABS: BASOPHILS ABSOLUTE AUTO 0.01 K/mm3 (0.00-0.23); BASOPHILS PERCENT AUTO 0 % (0-2); EOSINOPHILS PERCENT AUTO 0 % (0-6); Hematocrit 41.6 % (33.0-51.0); Hemoglobin 14.4 g/dL (11.5-16.0); IMMATURE GRAN ABSOLUTE AUTO 0.03 K/mm3 (0.00-0.10); IMMATURE GRAN PERCENT AUTO 0 % (0-1); LYMPHOCYTES ABSOLUTE AUTO 0.88 K/mm3 (0.84-5.20); LYMPHOCYTES PERCENT AUTO 12 % (21-46); MONOCYTES ABSOLUTE AUTO 0.71 K/mm3 (0.16-1.47); MONOCYTES PERCENT AUTO 9 % (4-13); Mean Corpuscular HGB 30.9 pg (26.0-34.0); Mean Corpuscular HGB Conc 34.6 g/dL (31.5-36.5); Mean Corpuscular Volume 89 fL (80-100); Mean Platelet Volume 11.5 fL (9.1-12.4); NEUTROPHILS ABSOLUTE AUTO 5.92 K/mm3 (1.96-9.15); NEUTROPHILS PERCENT AUTO 78 % (41-73); Platelet Count 252 K/mm3 (150-400); RDW Coefficient Variation 13.9 % (11.7-14.2); RDW Standard Deviation 45.4 fL (35.1-46.3); Red Blood Cell Count 4.66 M/mm3 (3.80-5.20); White Blood Cell Count 7.55 K/mm3 (4.00-11.30)
[2021-11-22 15:46] LABS: Albumin, Blood 3.8 g/dL (3.4-5.0); Albumin/Globulin Ratio 1.2 (0.8-1.8); Bilirubin, Total 0.8 mg/dL (0.1-1.0); Bun/Creatinine Ratio 16.8 (12.0-20.0); Creatinine, Blood 1.13 mg/dL (0.40-1.00); Globulin, Blood 3.3 g/dL (2.2-4.0); Potassium, Blood 3.6 mmol/L (3.5-5.5); Total Protein, Blood 7.1 g/dL (6.4-8.2)
[2021-11-23 00:43] LABS: Appearance, Urine Clear (Clear); Bilirubin, Urine Neg (Neg); Blood, Urine 2+ (Neg); Color, Urine Yellow (P-Yellow); Glucose Qualitative, Urine Neg (Neg); Ketones, Urine Neg (Neg); Leukocyte Esterase, Urine Neg (Neg); Nitrite, Urine Neg (Neg); Protein, Urine 2+ (Neg); Source, Urine Clean Catch; Urobilinogen, Urine NORM (Normal)
[2021-11-23 00:48] LABS: Bacteria Rare /hpf; Red Blood Cells, Urine 0-2 /hpf (0-2); Squamous Epithelial Cells Few /hpf (Few); White Blood Cells, Urine Not Seen /hpf (0-5)
[2021-11-23 04:55] LABS: BASOPHILS ABSOLUTE AUTO 0.02 K/mm3 (0.00-0.23); BASOPHILS PERCENT AUTO 0 % (0-2); EOSINOPHILS ABSOLUTE AUTO 0.01 K/mm3 (0.00-0.68); EOSINOPHILS PERCENT AUTO 0 % (0-6); Hematocrit 41.3 % (33.0-51.0); Hemoglobin 14.1 g/dL (11.5-16.0); IMMATURE GRAN ABSOLUTE AUTO 0.03 K/mm3 (0.00-0.10); IMMATURE GRAN PERCENT AUTO 0 % (0-1); LYMPHOCYTES ABSOLUTE AUTO 1.34 K/mm3 (0.84-5.20); LYMPHOCYTES PERCENT AUTO 16 % (21-46); MONOCYTES ABSOLUTE AUTO 0.71 K/mm3 (0.16-1.47); MONOCYTES PERCENT AUTO 8 % (4-13); Mean Corpuscular HGB 30.7 pg (26.0-34.0); Mean Corpuscular HGB Conc 34.1 g/dL (31.5-36.5); Mean Corpuscular Volume 90 fL (80-100); Mean Platelet Volume 11.5 fL (9.1-12.4); NEUTROPHILS ABSOLUTE AUTO 6.52 K/mm3 (1.96-9.15); NEUTROPHILS PERCENT AUTO 76 % (41-73); Platelet Count 265 K/mm3 (150-400); Red Blood Cell Count 4.59 M/mm3 (3.80-5.20); White Blood Cell Count 8.63 K/mm3 (4.00-11.30)
--- NOTE | 2021-11-23 05:16 | NUR ---
NEW ADMISSION AOX2 WITH SOME FORGETFULLNESS ABLE TO VOICE NEEDS C/O PAIN 04/12 TO HER LLE TYLENOL ADMIN PER ORDER NOTED ELEVATED B/P PRN HYDRALIZINE 10MG IV ADMIN DR BASSETT MADE AWARE NEW ORDER D/C NORMAL SALINE AND GIVE ADDITIONAL 10MG HYDRALINE X 1 DOSE.PATIENT HAS BEEN UP THE WHOLE NIGHT
[2021-11-23 05:17] LABS: Bun/Creatinine Ratio 15.5 (12.0-20.0); Calcium, Blood 8.7 mg/dL (8.5-10.1); Creatinine, Blood 0.97 mg/dL (0.40-1.00); Potassium, Blood 3.7 mmol/L (3.5-5.5)
--- NOTE | 2021-11-23 17:52 | NUR ---
SHIFT SUMMARY- PT SLEPT MOST OF THIS SHIFT. SHE WORKED THIS PT THIS AFTERNOON. HER APPETITE IS POOR. SHE HAS A PUREWIC IN PLACE. SHE IS ON TELE. SHE IS RECIEVING IV ABX. HER BED IS IN THE LOW POSITION AND CALL LIGHT IS WITIN REACH.
[2021-11-24 04:24] LABS: Hematocrit 39.3 % (33.0-51.0); Hemoglobin 13.5 g/dL (11.5-16.0); Mean Corpuscular HGB 30.7 pg (26.0-34.0); Mean Corpuscular HGB Conc 34.4 g/dL (31.5-36.5); Mean Corpuscular Volume 89 fL (80-100); Mean Platelet Volume 11.9 fL (9.1-12.4); Platelet Count 282 K/mm3 (150-400); RDW Coefficient Variation 13.8 % (11.7-14.2); RDW Standard Deviation 45.2 fL (35.1-46.3); White Blood Cell Count 7.44 K/mm3 (4.00-11.30)
[2021-11-24 04:43] LABS: Albumin, Blood 3.5 g/dL (3.4-5.0); Anion Gap 9 mmol/L (6-16); Blood Urea Nitrogen 34 mg/dL (8-24); Bun/Creatinine Ratio 28.1 (12.0-20.0); CO2, Blood 26 mmol/L (21-32); Calcium, Blood 8.9 mg/dL (8.5-10.1); Chloride, Blood 98 mmol/L (98-108); Creatinine, Blood 1.21 mg/dL (0.40-1.00); Glomerular Filtration Rate 44 (60-); Glucose, Blood 108 mg/dL (70-99); Phosphorus, Blood 3.1 mg/dL (2.5-4.9); Potassium, Blood 3.6 mmol/L (3.5-5.5); Sodium, Blood 133 mmol/L (136-145)
--- NOTE | 2021-11-24 05:16 | NUR ---
SHIFT SUMMARY PATIENT RECEIVED IN BED B/P ELEVATED PRN HYDRALIZINE ADM WITH POSITIVE EFFECT C/O PAIN TO HER BACK HITTING PAD APPLIED WITH LITTLE RESULT REPOSTION WITH NO EFFECT TYLENOL ADM WITH POSTIVE EFFECT PATIENT NOTED ASLEEP MOST OF THE SHIFT
--- NOTE | 2021-11-24 18:08 | NUR ---
SHIFT SUMMARY PATIENT SLEPT MOST OF SHIFT. PATIENT HAD POOR APPETITE T/O SHIFT. PATIENT HAD DIARRHEA X3. PUREWICK IN PLACE. PATIENT COMPLAINS OF BACK PAIN, HEATING PAD IN PLACE BUT REFUSES PAIN MEDICATION. TELE- SR 68 PER TAKE AWAY ATTENDANT. VSS. WILL CONTINUE TO MONITOR.
[2021-11-24 19:25] LABS: Influenza A, PCR NEGATIVE (NEGATIVE); Influenza B, PCR NEGATIVE (NEGATIVE); Resp Syncytial Virus, PCR NEGATIVE (NEGATIVE)
[2021-11-24 19:29] LABS: SARS-Cov-2 (COVID-19) PCR, MMC POSITIVE (NEGATIVE)
[2021-11-25 04:35] LABS: Hematocrit 37.3 % (33.0-51.0); Hemoglobin 12.7 g/dL (11.5-16.0); Mean Corpuscular HGB 30.7 pg (26.0-34.0); Mean Corpuscular Volume 90 fL (80-100); Mean Platelet Volume 11.2 fL (9.1-12.4); Platelet Count 221 K/mm3 (150-400); RDW Coefficient Variation 13.9 % (11.7-14.2); RDW Standard Deviation 46.1 fL (35.1-46.3); Red Blood Cell Count 4.14 M/mm3 (3.80-5.20); White Blood Cell Count 5.37 K/mm3 (4.00-11.30)
[2021-11-25 04:53] LABS: Anion Gap 8 mmol/L (6-16); Blood Urea Nitrogen 37 mg/dL (8-24); Bun/Creatinine Ratio 35.2 (12.0-20.0); CO2, Blood 26 mmol/L (21-32); Calcium, Blood 8.1 mg/dL (8.5-10.1); Chloride, Blood 106 mmol/L (98-108); Creatinine, Blood 1.05 mg/dL (0.40-1.00); Glomerular Filtration Rate 52 (60-); Glucose, Blood 101 mg/dL (70-99); Phosphorus, Blood 2.6 mg/dL (2.5-4.9); Potassium, Blood 3.3 mmol/L (3.5-5.5); Sodium, Blood 140 mmol/L (136-145)
--- NOTE | 2021-11-25 05:56 | NUR ---
SHIFT SUMMARY PATIENT ALERT AND ORIENTED X2-3. SLOW TO RESPOND BUT ANSWERS APPROPRIATELY. MEDICATED PER EMAR FOR PAIN, NAUSEA, AND HYPERTENTION. NO COMPLAINTS OF SHORTNESS OF BREATH. ON ROOM AIR STILL. BED IN LOWEST POSITION WITH WHEELS LOCKED AND ALARM ON. CALL LIGHT WITHIN REACH. REPORT GIVEN TO ONCOMING RN.
--- NOTE | 2021-11-25 18:38 | NUR ---
SHIFT SUMMARY PATIENT RESTING IN BED. A&O2-3, SLOW TO RESPOND. MEDICATED PER MAR FOR PAIN AND HTN. ON RA. PATIENT SLEPT MOST OF SHIFT. POOR APPETITE. RECEIVED BEDBATH AND TOLERATED WELL. UTILIZES CALL LIGHT APPROPRIATELY. BED IN LOW POSITION WITH CALL LIGHT IN REACH. WILL CONTINUE TO MONITOR.
--- NOTE | 2021-11-26 04:32 | NUR ---
PT with covid 19 continues on room air without complaints of SOB. Old CVA with lt sided weakness, UE weaker than lt le. Lt sided facial droop. Needed assist for snack. able to hold drink & take 75 % ensure with setup. Needed 2 assist for toileting & bed mobility. Had been living with her Sister, DC planning needed. PT has hypertension apresoline 20 g IV given x 2. BP this AM 185/54 pulse 69. Meds whole in applesauce or pudding. CO lt le pain tylenol 650 mg given x 2 with mild helpful effect.
--- NOTE | 2021-11-26 17:59 | NUR ---
PATIENT SAT IN CHAIR BRIEFLY AFTER PT SAW HER. HAD A BM. RESPIRATIONS EVEN AND UNLABORED. NO COMPLAINTS VOICED. CALM AND COOPERATIVE. WILL MONITOR.
--- NOTE | 2021-11-27 07:02 | NUR ---
PT with covid 19 & hx of old CVA with lt UE LT LE weakness. She continues on room air with no acute resp distress noted. Continues incontinent of bowel & bladder & calls after she goes. Dev delay, PT able to communicate. Working with PT OT . PRN antihypertensive given for SBP greater than 200 with helpful effect. CO headache tylenol 650 mg po with helpful effect.
--- NOTE | 2021-11-27 14:10 | NUR ---
Ptr. in bed , prayed for pt., standing by the door, prayed for the pt.
--- NOTE | 2021-11-27 16:55 | NUR ---
MEDICATED ONCE FOR C/O LEG CRAMPING THIS MORNING. BP ELEVATED, MEDICATED PER -JAN. RESTING QUIETLY AT THIS TIME. RESTING INTERMITTENTLY. CALM AND COOPERATIVE. HL INTACT. INCONTINENT OF URINE AND STOOL. WILL MONITOR.
--- NOTE | 2021-11-28 10:01 | NUR ---
MEDICATED FOR C/O SHOULDER PAIN AND UPPER LEG PAIN. APRESOLINE IV FOR ELEVATED BP ABOVE PARAMETERS.
--- NOTE | 2021-11-28 14:19 | NUR ---
MEDICATED FOR C/O STOMACH PAIN. DENIES NAUSEA. UNABLE TO EXPLAIN HOW IT FELT OTHER THAN "IT HURTS" HAD A BM EARLIER TODAY PER NORMALIZER.
--- NOTE | 2021-11-28 16:22 | NUR ---
PATIENT MEDICATED FOR C/O ABDOMINAL PAIN X 1 AND SHOULDER/UPPER LEG PAIN X 1. PT IN TO SEE PATIENT TODAY. HL INTACT. PATIENT REPORTS "FEELING TIRED" AND WANTS TO SLEEP ALOT. TOLERATING PO FLUIDS BUT NOT A GREAT APPETITE. FLAT AFFECT NOTED. INCONTINENT OF URINE AND STOOL. WILL MONITOR.
--- NOTE | 2021-11-29 05:18 | NUR ---
PATIENT IS ALERT AND ORIENTED TO SELF AND PLACE. BP HAS BEEN ELEVATED THIS SHIFT WITH MOST RECENT SBP >200. PRN IV HYDRALAZINE ADMINISTERED PER EMAR AND UPON RECHECK HER BP IS COMING DOWN. PATIENT CALLS APPROPRIATELY FOR STAFF ASSIST AND COMMUNICATES NEEDS. NO OTHER ACUTE CHANGES TO REPORT OF AT THIS TIME. PATIENT IN BED RESTING WITH CALL LIGHT WITHIN REACH.
--- NOTE | 2021-11-29 17:20 | NUR ---
NO ACUTE CHANGES PT AOX1 AND DOES NOT TALK. PT WILL NOD TO ANSWER AND CAN MAKE SOME NEEDS KNOWN. CALL LIGHT IS WITHIN REACH AND BED ALARM IN PLACE. PT RESTING AT THIS TIME WILL CONTINUE TO MONITOR.
--- NOTE | 2021-11-30 04:39 | NUR ---
PATIENT HAD AN UNEVENTFUL NIGHT AND SLEPT T/O THE SHIFT. BP WAS ELEVATED AT THE START OF SHIFT AND ADMINISTERED PRN AND SCHEDULED ANTIHYPERTENSIVES WHICH WERE EFFECTIVE; CORPORATE ASSOCIATE BP WNL. NO ACUTE CHANGES TO REPORT OF AT THIS TIME. CALL LIGHT WITHIN REACH.
[2021-11-30 05:41] LABS: Bun/Creatinine Ratio 27.2 (12.0-20.0); Calcium, Blood 8.9 mg/dL (8.5-10.1); Creatinine, Blood 1.14 mg/dL (0.40-1.00); Potassium, Blood 4.3 mmol/L (3.5-5.5)
--- NOTE | 2021-11-30 17:41 | NUR ---
SHIFT SUMMARY 66 Y FEMALE ADMITTED FOR SEPSIS SECONDARY TO UTI. PT IS A&O 2-3, PLEASANT AND COOPERATIVE WITH CARE. PT WORKED WITH PT/OT TODAY AND DID GET UP TO CHAIR THIS AM BUT DIDN'T TOLERATED IT WELL AND RETURNED TO BED BEFORE BREAKFAST. PT APPEARS WEAK AND DECONDITIONED. NURSING STAFF HAVE BEEN ENCOURAGING MOBILITY AND NUTRITIONAL INTAKE. NO OTHER CHANGES TO REPORT THIS SHIFT.
--- NOTE | 2021-12-01 04:32 | NUR ---
SALES MARKETING DIRECTOR SUMMARY ADMITTED FOR SEPSIS SECONDARY TO A UTI. PT IS ALERT AND ORIENTED X2 BUT SLOW TO RESPOND. SHE IS FULL CODE. PT WAS UNABLE TO GET COMFORTABLE LAST NIGHT AND REQUIRED ASSISTANCE WITH REPOSITIONING. SHE IS STILL WEAK OVERALL, WITH CONTINUED DEFICIT TO THE LEFT SIDE SECONDARY TO OLD CVA. PT CURRENTLY RESTING. NO OTHER CONCERNS THIS SHIFT.
--- NOTE | 2021-12-01 08:57 | NUR ---
REPORT RECIVED FROM NIGHT NURSE, PATIENT NOTED IN BED, NO ACUTE DISTRESS NOTED. CALL FERNANDO WITH REACH.
--- NOTE | 2021-12-01 16:28 | NUR ---
PATIENT ATE 100% OF LUNCH WHILE SITTING CHAIR.PATIENT IS AWAKE,ALERT AND ORIENT TIMES TWO WITH EPISODE OF FORGETFUL. PATIENT DENIES PAIN. PATIENT COMMUNICATE APPROPRATELY WITH STAFF.
--- NOTE | 2021-12-02 04:31 | NUR ---
PARTY HOST SUMMARY ADMITTED FOR SEPSIS RELATED TO UTI. PT IS FULL CODE. SHE IS ALERT AND ORIENTED TO SELF AND SURROUNDINGS, SOMETIMES FORGETFUL. SHE IS SLOW TO RESPOND, MOST LIKELY DUE TO HX OF CVA AND DEVELOPMENTAL DELAY. THE PATIENT CONTINUES TO HAVE HIGH BLOOD PRESSURE AND WAS MEDICATED WITH IV HYDRALAZINE. SHE DENIES ANY SYMPTOMS AND REPORTS THAT HER BLOOD PRESSURE IS "ALWAYS HIGH" AT HOME. THE PATIENT HAS LEFT SIDED DEFICIT FROM CVA, BUT SEEMS TO BE IMPROVING IN OVERALL STRENGTH WITH ROLLS AND BED CHANGES.
[2021-12-02 06:25] LABS: Albumin, Blood 3.2 g/dL (3.4-5.0); Anion Gap 3 mmol/L (6-16); Blood Urea Nitrogen 29 mg/dL (8-24); Bun/Creatinine Ratio 26.4 (12.0-20.0); CO2, Blood 29 mmol/L (21-32); Calcium, Blood 8.5 mg/dL (8.5-10.1); Chloride, Blood 108 mmol/L (98-108); Glomerular Filtration Rate 49 (60-); Glucose, Blood 104 mg/dL (70-99); Phosphorus, Blood 2.9 mg/dL (2.5-4.9); Potassium, Blood 4.2 mmol/L (3.5-5.5); Sodium, Blood 140 mmol/L (136-145)
--- NOTE | 2021-12-02 14:55 | NUR ---
Patient is awake,alert and oriented times two. denies pain. patient ate 100% of lunch, and request afternoon snack. Patient had a large BM today.
--- NOTE | 2021-12-03 14:48 | NUR ---
Pt. is in bed resting and her nurse in the room attending to here needs, offered prayers for pt.
--- NOTE | 2021-12-03 18:43 | NUR ---
SHIFT SUMMARY NO ACUTE CHANGES THIS SHIFT. PT SLIGHTLY WITHDRAWN AND FATIGUED. WORKED WITH OCCUPATIONAL THERAPY TODAY BUT WAS UNABLE TO GET UP TO THE CHAIR. VSS. AWAITING PLACEMENT. WILL REPORT TO ABEBE CHEEK.
--- NOTE | 2021-12-04 05:59 | NUR ---
Patient AAOX3, stable, no complaint of pain or disconfort noted. Patient is cooperative with care. Pending discharge plan and placement. No acute changes. We will continue to monitor patient.
[2021-12-04 06:11] LABS: Albumin, Blood 3.3 g/dL (3.4-5.0); Anion Gap 3 mmol/L (6-16); Blood Urea Nitrogen 29 mg/dL (8-24); Bun/Creatinine Ratio 25.2 (12.0-20.0); CO2, Blood 29 mmol/L (21-32); Calcium, Blood 8.7 mg/dL (8.5-10.1); Chloride, Blood 106 mmol/L (98-108); Creatinine, Blood 1.15 mg/dL (0.40-1.00); Glomerular Filtration Rate 47 (60-); Glucose, Blood 91 mg/dL (70-99); Potassium, Blood 4.2 mmol/L (3.5-5.5); Sodium, Blood 138 mmol/L (136-145)
--- NOTE | 2021-12-04 14:07 | NUR ---
Pt. lying in nbed resting offered prayers for the pt/.
--- NOTE | 2021-12-04 14:51 | NUR ---
DISCHARGE SUMMARY PT A/O X2 AND WITHDRAWN. 1-2 ASSIST TO GET UP AND CONT/INCONT. EXCORIATED LABIA AND CREAM APPLIED. DC'D TO ZEE. REPORT TO BE CALLED TO ZEE.
== END 2021-12-04 14:34 | DRG 640 ==
LOC: ER 14:19 → MEDS 16:29
PROVIDERS: Emergency Medicine; Family Medicine; Internal Medicine; ADMIT Internal Medicine
PROC: 8E0ZXY6 Isolation (ICD-10-PCS; principal; 2021-11-22)
DX: E86.0 Dehydration (principal); U07.1 COVID-19; I69.354 Hemiplegia and hemiparesis following cerebral infarction affecting left non-dominant side; I13.0 Hypertensive heart and chronic kidney disease with heart failure and stage 1 through stage 4 chronic kidney disease, or unspecified chronic kidney disease; N17.9 Acute kidney failure, unspecified; E87.2 Acidosis; F32.A Depression, unspecified; E78.5 Hyperlipidemia, unspecified; N18.30 Chronic kidney disease, stage 3 unspecified; I12.9 Hypertensive chronic kidney disease with stage 1 through stage 4 chronic kidney disease, or unspecified chronic kidney disease; W18.30XA Fall on same level, unspecified, initial encounter; E55.9 Vitamin D deficiency, unspecified; J44.9 Chronic obstructive pulmonary disease, unspecified; Z98.51 Tubal ligation status; Z95.1 Presence of aortocoronary bypass graft; I25.10 Atherosclerotic heart disease of native coronary artery without angina pectoris; Z88.1 Allergy status to other antibiotic agents; Z88.2 Allergy status to sulfonamides; Z88.8 Allergy status to other drugs, medicaments and biological substances; Z79.899 Other long term (current) drug therapy; E87.6 Hypokalemia
CPT/HCPCS: 0241U; 36415; 71045; 71250; 74176; 80048; 80053; 80069; 81001; 83605; 84145; 85025; 85027; 87040; 96374; 97110; 97112; 97116; 97161; 97166; 97530; 99285-25; A9270; J0360; J0696; J1650; J2405; J7030

== ENCOUNTER 2022-01-05 08:23 | Inpatient (IN) | payer OTHER, MEDICARE ==
[~2022-01-05] VITALS: Ht 157.5 cm; Wt 55.5 kg
[2022-01-05 08:54] LABS: BASOPHILS ABSOLUTE AUTO 0.03 K/mm3 (0.00-0.23); BASOPHILS PERCENT AUTO 0 % (0-2); EOSINOPHILS ABSOLUTE AUTO 0.08 K/mm3 (0.00-0.68); EOSINOPHILS PERCENT AUTO 1 % (0-6); Hematocrit 26.2 % (33.0-51.0); Hemoglobin 8.6 g/dL (11.5-16.0); IMMATURE GRAN ABSOLUTE AUTO 0.04 K/mm3 (0.00-0.10); IMMATURE GRAN PERCENT AUTO 0 % (0-1); LYMPHOCYTES ABSOLUTE AUTO 3.16 K/mm3 (0.84-5.20); LYMPHOCYTES PERCENT AUTO 32 % (21-46); MONOCYTES ABSOLUTE AUTO 0.83 K/mm3 (0.16-1.47); MONOCYTES PERCENT AUTO 9 % (4-13); Mean Corpuscular HGB Conc 32.8 g/dL (31.5-36.5); Mean Corpuscular Volume 95 fL (80-100); Mean Platelet Volume 12.6 fL (9.1-12.4); NEUTROPHILS ABSOLUTE AUTO 5.66 K/mm3 (1.96-9.15); NEUTROPHILS PERCENT AUTO 58 % (41-73); Platelet Count 228 K/mm3 (150-400); RDW Coefficient Variation 13.7 % (11.7-14.2); RDW Standard Deviation 47.9 fL (35.1-46.3); Red Blood Cell Count 2.77 M/mm3 (3.80-5.20)
[2022-01-05 09:11] LABS: Albumin, Blood 2.7 g/dL (3.4-5.0); Bilirubin, Total 0.4 mg/dL (0.1-1.0); Bun/Creatinine Ratio 36.8 (12.0-20.0); Calcium, Blood 8.4 mg/dL (8.5-10.1); Creatinine, Blood 1.17 mg/dL (0.40-1.00); Globulin, Blood 2.6 g/dL (2.2-4.0); Potassium, Blood 4.6 mmol/L (3.5-5.5); Total Protein, Blood 5.3 g/dL (6.4-8.2)
--- NOTE | 2022-01-05 12:54 | NUR ---
ASSUMED CARE OF PATIENT 1152 ED ADMIT: AOX3, FOLLOWS COMMANDS, BP BORDERLINE, NSR 60S, WEAK +1 PULSES, RUST/IRON SMELL IN ROOM, NO BLOOD PRESENT, 2 RN SKIN CHECK NO WOUNDS, 2ND PRBC INFUSING, ISOLATION PLACED PER MD DA HAYWOOD PENDING, AFEBRILE, ABDOMEN HYPERACTIVE TENDER, LUNGS CLEAR/DIM ON RA, DENIES SOB, WILL CONTINUE TO MONITOR.
[2022-01-05 13:04] LABS: Influenza A, PCR NEGATIVE (NEGATIVE); Influenza B, PCR NEGATIVE (NEGATIVE); Resp Syncytial Virus, PCR NEGATIVE (NEGATIVE); SARS-Cov-2 (COVID-19) PCR, MMC NEGATIVE (NEGATIVE)
--- NOTE | 2022-01-05 14:08 | NUR ---
1400 SECOND BLOOD UNIT DONE, LUNGS CLEAR/DIM, AFEBRILE, VSS IMPROVED BP, DENIES FLANK PAIN.
[2022-01-05 15:11] LABS: Hematocrit 35.5 % (33.0-51.0)
--- NOTE | 2022-01-05 17:46 | NUR ---
01/05/22 174 Renata Mcdonnell OBTAINED CONSENTS WITH DR PINEDO AND SISTER OVER THE PHONE. PT CONFUSED PT TAKEN TO OR [address] EDDY PROCEDEDURE COMPLETE
--- NOTE | 2022-01-05 18:29 | NUR ---
ARRIVED FROM OR 181: SOMNOLENT, FOLLOWING DIRECTIONS, HTN 160-170S, MP WNL, LR/PROTONIX RESTARTED, NSR 60S, WILL CONTINUE TO MONITOR.
--- NOTE | 2022-01-05 18:51 | NUR ---
AOX3, FOLLOWS COMMANDS, DENIES N/V, NO HEMATEMESIS, PUPILS 3MM BRISK, LUNGS CLEAR, SATS WNL ON RA, ABDOMEN TENDER HYPERACTIVE BOWELS, 3 LOOSE MAROON MODERATE BMS THIS SHIFT, EGD PERFORMED W/ GASTRIC CAUTERIZATION AND BIOPSY SEE PHYSICIAN NOTE, LR 1L BOLUS GIVEN, 150-75ML HR LR PLACED, BP SOFT THEN HTN POST EGD, PENDING LABETELOL ORDER, NSR 60S, WEAK +1 PULSES, REMAINED NPO THIS SHIFT, WILL REPORT TO NIGHT RN.
[2022-01-05 20:55] LABS: Hematocrit 34.1 % (33.0-51.0); Hemoglobin 11.7 g/dL (11.5-16.0)
[2022-01-06 03:57] LABS: Hematocrit 31.8 % (33.0-51.0); Hemoglobin 10.5 g/dL (11.5-16.0)
--- NOTE | 2022-01-06 06:14 | NUR ---
Patient per assessments. At start of shift, slow to respond and very withdrawn, oriented to place and self. As the shift went on, pt became much more interactive, cooperative, and orientedx3. One dark red stool. H&H stable throughout shift. Abdomen remains firm and tender. LR and protonix gtt infusing. PRN labetalol give x2 for SBP greater than 160; MAP maintained greater than 65.
[2022-01-06 08:57] LABS: Anion Gap 6 mmol/L (6-16); Blood Urea Nitrogen 30 mg/dL (8-24); Bun/Creatinine Ratio 32.6 (12.0-20.0); CO2, Blood 24 mmol/L (21-32); Calcium, Blood 8.6 mg/dL (8.5-10.1); Chloride, Blood 113 mmol/L (98-108); Creatinine, Blood 0.92 mg/dL (0.40-1.00); Glomerular Filtration Rate >60 (60-); Glucose, Blood 127 mg/dL (70-99); Potassium, Blood 4.9 mmol/L (3.5-5.5); Sodium, Blood 143 mmol/L (136-145)
--- NOTE | 2022-01-06 09:17 | NUR ---
ASSUMED CARE OF PATIENT 0700: AOX4 BUT NEEDS REORIENTATION AT TIMES, FOLLOWS COMMANDS, PROTONIX IV INFUSING, LR 75ML/HR, HTN 160/170S BUT JUST INITIATED 50MG METOPROLOL AND 10MG LISINIPRIL, NO HEMATEMESIS OR DARK TARRY STOOL, WILL REASSESS IN 1 HR BEFORE LABETELOL PRN, WILL CONTINUE TO MONITOR.
--- NOTE | 2022-01-06 14:04 | NUR ---
AOX4, FOLLOWS COMMANDS, CHANGED TO CLEAR LIQUID DIET, TOLERATING NEW DIET, FORGETFUL AND SLOW TO RESPOND, RA LUNGS CLEAR/DIM, ABDOMEN NON TENDER, NO BM THIS SHIFT, INCONTINENENT OF URINE, HTN THIS SHIFT, LABETELOL 10MG X2 GIVEN WITH GOOD AFFECT, INITIATED METOPROLOL/LISINIPRIL WITH LITTLE AFFECT, H&H STABLE THIS SHIFT, CT ABDOMEN/PELVIS AWAITING RESULTS, REPORT GIVEN AND PATIENT TRANSFERED TO ROOM 362.
--- NOTE | 2022-01-06 19:59 | NUR ---
SHIFT SUMMARY: ASSUMED CARE OF PT UPON HER ARRIVAL FROM ICU AT 1415 TODAY. A&O X 3, SLOW TO RESPOND. NO EVENTS ON TELEMETRY, SR 70'S. INCONTINENT OF B&B, ATTENDS IN PLACE. RFA IV WAS INFILTRATED ON ARRIVAL, SINCE REMOVED. TOLERATING CL LIQ DIET. SLIGHT NEGLECT ON L SIDE FROM CVA.
--- NOTE | 2022-01-07 05:06 | NUR ---
Alert to self, able to make needs known. Denied pain or shortness of breath. Respirations even and unlabored. Slept well through night. No bowel movement this shift, no blood noted on brief. Incontinent of urine through night with frequent changing of brief. Safety maintained, call yi in reach.
[2022-01-07 05:14] LABS: Hematocrit 27.2 % (33.0-51.0); Hemoglobin 8.9 g/dL (11.5-16.0); Mean Corpuscular HGB 30.1 pg (26.0-34.0); Mean Corpuscular HGB Conc 32.7 g/dL (31.5-36.5); Mean Corpuscular Volume 92 fL (80-100); Platelet Count 136 K/mm3 (150-400); RDW Coefficient Variation 15.3 % (11.7-14.2); RDW Standard Deviation 51.1 fL (35.1-46.3); Red Blood Cell Count 2.96 M/mm3 (3.80-5.20); White Blood Cell Count 7.76 K/mm3 (4.00-11.30)
--- NOTE | 2022-01-07 07:00 | NUR ---
ASSUMED CARE OF PT AT 0700. REPORT RECEIVED. PT SLEEPING COMFORTABLY AND IN NO DISTRESS.
--- NOTE | 2022-01-07 13:48 | NUR ---
BLOODY STOOLS DR. ROBERSON NOTIFIED OF A SECOND BLOODY STOOL TODAY. THE FIRST WAS FLANK BLOOD, BUT A SMALL AMOUNT. THE SECOND WAS MAROON IN COLOR AND A SMALL BM IN SIZE. ORDER TO MAKE PT NPO OBTAINED AND A H&H ORDER WAS PLACED. PT UPDATED ABOUT THIS PLAN.
[2022-01-07 14:47] LABS: Hematocrit 28.4 % (33.0-51.0); Hemoglobin 9.3 g/dL (11.5-16.0)
--- NOTE | 2022-01-07 16:26 | NUR ---
TRANSFER TO DAY SURGERY PT TRANSFERED TO DAY SURGERY FOR REPEAT EGD. REPORT GIVEN TO PCU NURSE, IVELISSE FOR WHEN PT RECOVERS. NO FURTHER QUESTIONS REQUIRED AT THIS TIME. BP CONTINUES TO BE ELEVATED AT 187/[address] ROBERSON NOTIFED OF THIS AND PLACED NEW ORDERED. A THIRD BLOOD STOOL OCCURED. SMALL IN SIZE AND MAROON IN COLOR. NO OTHER ACUTE CHANGES IN ASSESSMENT AT THIS TIME. PT BELONGINGS SENT TO ROOM PCU3.
--- NOTE | 2022-01-07 16:42 | NUR ---
PT IN DAYSURGERY RECENTLY BY JENNIFER FROM ROOM 362. PT TO GO TO PCU AFTER PROCEDURE PER MEDICAL FLOOR RN. Lungs clear T/O to Auscultation. History, Chart, Medications and Allergies reviewed before start of procedure.Patient confirms NPO status and agrees with scheduled surgery. Pre-Op teaching done. Pt verbalizes understanding.
--- NOTE | 2022-01-07 16:44 | NUR ---
PT TO HAVE CONSENT BY PHONE WITH FAMILY MEMBER.
--- NOTE | 2022-01-07 18:07 | NUR ---
01/07/22 1807 Esau Escalante PATIENT DETERMINED TO BE ASA APPROPRIATE FOR PROPOFOL SEDATION PRIOR TO START OF PROCEDURE BY DR. PINEDO. Bite Block Placed. 3-LEAD EKG REVIEWED WITH PHYSICIAN PRIOR TO START OF PROCEDURE. Patient to ENDO 1. History, Chart, Medications and Allergies reviewed before start of procedure. MONITOR INTACT WITH CONTINUOUS PULSE OXIMETRY AND INTERMITTENT BP. O2 VIA POM INTACT THROUGHOUT SEDATION/PROCEDURE.
[2022-01-07 18:34] LABS: Hematocrit 28.2 % (33.0-51.0); Hemoglobin 9.3 g/dL (11.5-16.0)
--- NOTE | 2022-01-07 18:43 | NUR ---
RECIEVING NOTE: RECIEVED PATIENT AT 1800 BLOOD PRESSURE WAS EXTREMELY ELEVATED VASOTEC GIVEN, 2ND IV ESTABLISHED. WILL CONTINUE TO MONITOR. INFUSING LR 75 mL PLUS PROTONIX DRIP. CLEAR LIQUIDS HAS BEEN ORDERED PATIENT NEEDS TO BE NPO AT 1300 FOR COLONOSCOPY, BOWEL PREP ORDERED, NEED TO CONFIRM SISTER GAVE PERMISSION FOR COLONOSCOPY PROVIDER SHAHIDA TO CALL. ALERT TO SELF, , CARDIAC SR 60'S, BLOOD PRESSURE. CONTINUOUS OX DUE TO PROPOFOL GIVEN FOR EGD, GASTRIC ULCER LOOKING MUCH BETTER NO INTERVENTIONS DONE TODAY, HEALING. DENIES CHEST PAIN, ENDORSES SOB AT TIMES BUT NOT CURRENLTY, WILL CONTIUE TO MONITOR.
[2022-01-07 22:16] LABS: Hematocrit 27.5 % (33.0-51.0); Hemoglobin 9.1 g/dL (11.5-16.0)
[2022-01-08 04:38] LABS: Hematocrit 28.4 % (33.0-51.0); Hemoglobin 9.3 g/dL (11.5-16.0); Mean Corpuscular HGB 30.4 pg (26.0-34.0); Mean Corpuscular HGB Conc 32.7 g/dL (31.5-36.5); Mean Corpuscular Volume 93 fL (80-100); Mean Platelet Volume 11.9 fL (9.1-12.4); Platelet Count 139 K/mm3 (150-400); RDW Standard Deviation 50.5 fL (35.1-46.3); Red Blood Cell Count 3.06 M/mm3 (3.80-5.20); White Blood Cell Count 6.74 K/mm3 (4.00-11.30)
[2022-01-08 04:53] LABS: Bun/Creatinine Ratio 10.7 (12.0-20.0); Calcium, Blood 8.6 mg/dL (8.5-10.1); Creatinine, Blood 0.94 mg/dL (0.40-1.00); Potassium, Blood 3.9 mmol/L (3.5-5.5)
--- NOTE | 2022-01-08 06:05 | NUR ---
SHIFT SUMMARY PATIENT ALERT AND ORIENTED x1-2. ABLE TO MAKE NEEDS KNOWN TO STAFF, USES CALL LIGHT. PATIENT ON RA WITH O2 SAT ABOVE 90%. MILD HTN AT START OF SHIFT, PRN MEDICATION GIVEN BY DAY SHIFT RN WITH SOME RELIEF. SOFT DBP T/O NIGHT. PATIENT CONTINUES TO HAVE MAROON COLORED STOOL/LIQUID. INCONTINENT OF BLADDER. ATTENDS IN PLACE. REPOSITIONED Q2. SUPREP STARTED AT 0500 IN PREPARATION FOR COLONOSCOPY TODAY. NO OTHER ACUTE CHANGESM WILL REPORT TO DAY SHIFT RN.
--- NOTE | 2022-01-08 07:27 | NUR ---
INITIAL ASSESSMENT: Patient is resting with her eyes closed on her left side, she awakens easily to verbal stimuli. She denies pain at this time. When asked where she was at, she states, "in my room." She is not able to tell me the date. HRR, murmur noted. LS CTA, Biox WNL on RA. BT hypoactive, Attends changed. Patient has maroon stool that is draining continously, flexiseal placed because she is completing suprep for a colonscopy this afternoon. PPP. Skin is dry. VSS. Patient has to have alot of encouragement to complete the suprep. She denies other needs at this time. Call [facility] in reach, bed alarm on for safety. Will continue to monitor.
--- NOTE | 2022-01-08 10:25 | NUR ---
Update: Flexiseal has drained 700cc of maroon colored stool, bag changed to assess if her stoool is starting to clear at all. She denies other needs at this time. Call light in reach.
[2022-01-08 11:55] LABS: Hemoglobin 10.9 g/dL (11.5-16.0)
--- NOTE | 2022-01-08 14:39 | NUR ---
Met pt. in bed and her nurse in the room attending to her needs . Pt. is doing much better offered prayers for pt.
--- NOTE | 2022-01-08 14:45 | NUR ---
Update: Fexiseal bag changed again, patient has a total of 1700 ml stool out via flexiseal. Dr. Canada notifed, h/h checked again-it is stable at 10/30. Patient was able to finish all the suprep by 1030. Her stool is starting to turn more of a brownish green color, it is clear with flecks. Blood pressure a little high. 10 MG Labetalol given IV. Day Surgery RN Abdulaziz here to rock picker patient for colonscopy. Flexiseal removed. Sister at bedside, states she will wait in the surgical waiting room for procedure to be completed and get an update.
--- NOTE | 2022-01-08 15:00 | NUR ---
THE PATIENT WAS BROUGHT TO DAY SURGERY FOR HER PROCEDURE.
--- NOTE | 2022-01-08 15:19 | NUR ---
01/08/22 1519 Lola Varela History, Chart, Medications and Allergies reviewed before start of procedure. Patient confirms NPO status and agrees with scheduled surgery. 3-LEAD EKG REVIEWED WITH PHYSICIAN PRIOR TO START OF PROCEDURE. MONITOR INTACT WITH CONTINUOUS PULSE OXIMETRY AND INTERMITTENT BP. PATIENT DETERMINED TO BE ASA APPROPRIATE FOR PROPOFOL SEDATION PRIOR TO START OF PROCEDURE BY .
--- NOTE | 2022-01-08 17:00 | NUR ---
Patient arrived back from her colonscopy. Per the Day Surgery RN Lola, they found a few polyps they removed and they were biopsied. She is groggy, but oriented. She was slid over to the bed. She denies other needs at this time. Call gloria in [place], TAMI.
--- NOTE | 2022-01-08 18:01 | NUR ---
Summary: Patient has been alert and oriented to self and location t/o the shift. She has not had any pain for me today. HRR, SR in the 70s to 80s. She has been hypertensive at times, she was given one dose of labetalol 10 mg IV. LS CTA, Biox WNL on RA. BT+, she was given suprep today for a colonscopy. Initially she had continous maroon liquid stool leaking out-flexiseal placed. Her stool gradually changed from maroon to a brownish/green. Skin is intact but dry, lotion provided during bed bath. No other acute changes this shift, will report to oncoming RN.
--- NOTE | 2022-01-09 05:10 | NUR ---
SHIFT SUMMARY PATIENT ALERT AND ORIENTED TO SELF AND FAMILY. INCREASED DROWSINESS THIS SHIFT BUT WAKES EASILY TO VERBAL STIMULI. PATIENT ON RA WITH O2 SATS >90%. INCREASED SBP, DECREASED DBP. MEDICATED PER EMAR FOR INCREASED SBP. NO BM THIS SHIFT OR EVIDENCE OF BLEEDING FROM RECTUM. INCONTINENT OF BLADDER, ATTENDS IN PLACE. TURNED Q2 FOR PREVENTION OF SKIN BREAKDOWN. NO OTHER ACUTE CHANGES THIS SHIFT, WILL REPORT TO DAY SHIFT RN.
--- NOTE | 2022-01-09 07:30 | NUR ---
INITIAL ASSESSMENT: Patient is resting with eyes closed resp e/u. Patient awakens with verbal stimuli, she is [place]. Once she opens her eyes its a matter of seconds once she falls back asleep. She denies pain at this time. HRR, Murmur present patient is SR in the 60s. She is hypertensive this am, I will give her AM meds at this time and reassess. LS CTA, Biox 92% on RA. BT +. Patient is incontinent at times, attends in place. PPP. AM meds given with a sip of water, patient was able to swallow without difficulty. She denies other needs at this time. Call light in reach, [facility].
[2022-01-09 08:56] LABS: Hematocrit 27.7 % (33.0-51.0); Hemoglobin 8.9 g/dL (11.5-16.0)
--- NOTE | 2022-01-09 09:49 | NUR ---
Update: Dr. Canada has been by to see the patient. Blood pressure medications adjusted-see new orders. Patient has been down graded to medical status. DC plan discussed. Per the sister they are working on the patietn going to [facility] but she has to be a one person transfer for them to take her, PT consult ordered. Patient continues to rest comfortably, WCTM.
--- NOTE | 2022-01-09 17:52 | NUR ---
Summary: Patient was sleepy this morning and into the early afternoon, she awoke easily with verbal stimuli. This afternoon she was awake and able to pivot transfer to the chair with PT, plan for possible DC to [facility]. HRR T/O the shift, she has been SR in the 70s. Blood pressure remained high systocially, medication changes by MD. LS CTA, Biox WNL on RA. BT+. Patient is incontinent-attends in place. IV was SL today, pt had good PO intake and the Protonix gtt was switched to Prilosec PO BID. Patient is resting comfortably at this time. Call light in reach, will give report to ABEBE CHEEK.
--- NOTE | 2022-01-10 01:37 | NUR ---
ASSUMPTION OF CARE: RECEIVED REPORT FROM UBALDO ESCOBEDO RN. PATIENT SLIGHTLY HARD OF HEARING, RESPONDED APPROPRIATELY TO QUESTIONS, AND REPORTED HER "BELLY DOESN'T HURT RIGHT NOW." PATIENT ORIENTED TO SELF, SURROUNDINGS, SISTER, AND WHY SHE IS IN THE HOSPITAL. SYSTOLIC BP IS HIGH AND DIASTOLIC IS LOW. OTHER VS WNL.
[2022-01-10 04:39] LABS: BASOPHILS ABSOLUTE AUTO 0.04 K/mm3 (0.00-0.23); BASOPHILS PERCENT AUTO 1 % (0-2); EOSINOPHILS ABSOLUTE AUTO 0.35 K/mm3 (0.00-0.68); EOSINOPHILS PERCENT AUTO 5 % (0-6); Hematocrit 29.3 % (33.0-51.0); Hemoglobin 9.6 g/dL (11.5-16.0); IMMATURE GRAN ABSOLUTE AUTO 0.02 K/mm3 (0.00-0.10); IMMATURE GRAN PERCENT AUTO 0 % (0-1); LYMPHOCYTES ABSOLUTE AUTO 1.92 K/mm3 (0.84-5.20); LYMPHOCYTES PERCENT AUTO 26 % (21-46); MONOCYTES ABSOLUTE AUTO 0.62 K/mm3 (0.16-1.47); MONOCYTES PERCENT AUTO 8 % (4-13); Mean Corpuscular HGB 30.9 pg (26.0-34.0); Mean Corpuscular HGB Conc 32.8 g/dL (31.5-36.5); Mean Corpuscular Volume 94 fL (80-100); Mean Platelet Volume 11.8 fL (9.1-12.4); NEUTROPHILS ABSOLUTE AUTO 4.46 K/mm3 (1.96-9.15); NEUTROPHILS PERCENT AUTO 60 % (41-73); Platelet Count 153 K/mm3 (150-400); RDW Coefficient Variation 14.6 % (11.7-14.2); RDW Standard Deviation 49.4 fL (35.1-46.3); Red Blood Cell Count 3.11 M/mm3 (3.80-5.20); White Blood Cell Count 7.41 K/mm3 (4.00-11.30)
[2022-01-10 05:02] LABS: Bun/Creatinine Ratio 9.3 (12.0-20.0); Calcium, Blood 8.2 mg/dL (8.5-10.1); Creatinine, Blood 1.08 mg/dL (0.40-1.00); Potassium, Blood 3.5 mmol/L (3.5-5.5)
--- NOTE | 2022-01-10 05:41 | NUR ---
SHIFT SUMMARY: NO BLOODY EMESIS OR STOOL THIS SHIFT. PATIENT DENIES N/V AND PAIN IN ABDOMEN. PLAN IS TO D[facility]C [facility] TODAY, BUT NEEDS TO BE ASSESSED BY [facility] STAFF. PATIENT'S SISTER IS IN COMMUNICATION WITH [facility]. PATIENT IS PLEASANT AND COOPERATIVE WITH CARE. SHE MAKES NEEDS KNOWN WHEN STAFF IS IN ROOM BUT IS INCONSISTENT WITH CALL LIGHT USE.
--- NOTE | 2022-01-10 17:04 | NUR ---
SHIFT SUMMARY PT MEDICAL NO TELE STATUS. PT A&O X3. 1 PERSON ASSIST OOB W/ GB. VSS. SPO2 > 92% ON RA. NO EVENTS TODAY. PT AWAITING POTENTIAL DISCHARGE TO [facility] IN AM.
--- NOTE | 2022-01-10 22:11 | NUR ---
CARE ASSUMPTION: RECEIVED REPORT FROM HAM MONET. PATIENT IN BED WITH BED ALARM ON AND CALL LIGHT IN REACH. ASSISTED TECH IN CHANGING PATIENT'S ATTENDS AND REPOSITIONING. PATIENT DENIES STOMACH PAIN/N/V. NO BLOODY STOOLS OR EMESIS.
--- NOTE | 2022-01-11 04:14 | NUR ---
SHIFT SUMMARY: PATIENT A&O X3, NO N/V/D, NO BLOOD IN ATTENDS. VS WNL FOR PATIENT. PATIENT DENIES SOB AND CHEST PAIN, STATES HER STOMACH DOESN'T HURT. PLAN IS TO D/C TO [facility] TODAY. WILL CONTINUE TO MONITOR AND REPORT TO ONCOMING RN.
[2022-01-11] MEDS ORDERED: AMLO5 PO (08:59)
[2022-01-11] MEDS ORDERED: DOXY100 PO (09:00)
[2022-01-11] MEDS ORDERED: METR500 PO (09:00)
[2022-01-11] MEDS ORDERED: VISBIOME 112.51 EACH PO (09:02)
[2022-01-11] MEDS ORDERED: OMEP20ER PO (09:11)
--- NOTE | 2022-01-11 13:00 | NUR ---
DISCHARGE PT A&O X3. VSS. DISCHARGE INSTRUCTIONS REVIEWED W/ PT & PRINT OUTS SENT HOME W/ PT. IV REMOVED. PT DISCHARGED TO [facility] W/ ALIX. PT TAKEN OUT BY TRANSPORT SERVICE W/ WHEELCHAIR @ APPROX 1245.
== END 2022-01-11 12:45 | disposition home or self-care (01) | DRG 377 ==
LOC: ER 08:23 → ICUW 11:30 → ER 11:30 → ICUW 11:55 → ER 20:44 → MEDS 20:45 → PCU 20:45 → ICUW 20:45 → ICUE 21:55 → MEDS 01-06 14:15 → PCU 01-07 18:02
PROVIDERS: Emergency Medicine; Internal Medicine; Internal Medicine Gastroenterology; ADMIT Internal Medicine
PROC: 0W3P8ZZ Control Bleeding in Gastrointestinal Tract, Via Natural or Artificial Opening Endoscopic (ICD-10-PCS; 2022-01-05)
PROC: 0DB68ZX Excision of Stomach, Via Natural or Artificial Opening Endoscopic, Diagnostic (ICD-10-PCS; 2022-01-05)
PROC: 0DJ08ZZ Inspection of Upper Intestinal Tract, Via Natural or Artificial Opening Endoscopic (ICD-10-PCS; 2022-01-07)
PROC: 30233N1 Transfusion of Nonautologous Red Blood Cells into Peripheral Vein, Percutaneous Approach (ICD-10-PCS; principal; 2022-01-07 17:00)
PROC: 0DBK8ZZ Excision of Ascending Colon, Via Natural or Artificial Opening Endoscopic (ICD-10-PCS; 2022-01-08)
DX: K25.4 Chronic or unspecified gastric ulcer with hemorrhage (principal); R57.8 Other shock; I69.354 Hemiplegia and hemiparesis following cerebral infarction affecting left non-dominant side; Z20.822 Contact with and (suspected) exposure to COVID-19; Z66 Do not resuscitate; D64.9 Anemia, unspecified; B96.81 Helicobacter pylori [H. pylori] as the cause of diseases classified elsewhere; K63.5 Polyp of colon; F01.50 Vascular dementia, unspecified severity, without behavioral disturbance, psychotic disturbance, mood disturbance, and anxiety; I12.9 Hypertensive chronic kidney disease with stage 1 through stage 4 chronic kidney disease, or unspecified chronic kidney disease; N18.9 Chronic kidney disease, unspecified; E78.5 Hyperlipidemia, unspecified; Z28.21 Immunization not carried out because of patient refusal; F32.A Depression, unspecified; J44.9 Chronic obstructive pulmonary disease, unspecified; E55.9 Vitamin D deficiency, unspecified; Z86.16 Personal history of COVID-19; I25.10 Atherosclerotic heart disease of native coronary artery without angina pectoris; Z88.0 Allergy status to penicillin; Z88.1 Allergy status to other antibiotic agents; Z88.2 Allergy status to sulfonamides; Z91.048 Other nonmedicinal substance allergy status; Z79.82 Long term (current) use of aspirin; Z79.899 Other long term (current) drug therapy; Z95.1 Presence of aortocoronary bypass graft; Z98.890 Other specified postprocedural states; Z98.51 Tubal ligation status
CPT/HCPCS: 0241U; 36415; 36416; 36430; 71260; 74177; 76857; 80048; 80053; 85014; 85018; 85025; 85027; 86850; 86900; 86901; 86920; 88305; 88341; 88342; 93005; 93010; 96365; 96366; 96368; 96375; 97110; 97162; 97530; 99285-25; A9270; C9113; J0171; J1100; J1430; J2250; J2354; J2370; J2405; J2704; J2765; J7030; J7120; P9016; Q9967

== ENCOUNTER 2022-07-12 15:40 | Emergency (ER) | payer OTHER ==
[~2022-07-12] VITALS: Ht 152.4 cm; Wt 63.5 kg
[~2022-07-12 15:40] MED LIST changes: +AMLO5 PO; +METR500 PO; +OMEP20ER PO; +VISBIOME 112.51 EACH PO
[2022-07-12 16:38] LABS: Source, Urine Straight Cath
[2022-07-12 16:40] LABS: BASOPHILS ABSOLUTE AUTO 0.02 K/mm3 (0.00-0.23); BASOPHILS PERCENT AUTO 0 % (0-2); EOSINOPHILS PERCENT AUTO 0 % (0-6); Hematocrit 18.7 % (33.0-51.0); IMMATURE GRAN ABSOLUTE AUTO 0.05 K/mm3 (0.00-0.10); IMMATURE GRAN PERCENT AUTO 0 % (0-1); LYMPHOCYTES ABSOLUTE AUTO 0.76 K/mm3 (0.84-5.20); LYMPHOCYTES PERCENT AUTO 6 % (21-46); MONOCYTES ABSOLUTE AUTO 0.73 K/mm3 (0.16-1.47); MONOCYTES PERCENT AUTO 6 % (4-13); Mean Corpuscular HGB 24.4 pg (26.0-34.0); Mean Corpuscular HGB Conc 27.8 g/dL (31.5-36.5); Mean Corpuscular Volume 88 fL (80-100); Mean Platelet Volume 11.4 fL (9.1-12.4); NEUTROPHILS ABSOLUTE AUTO 11.36 K/mm3 (1.96-9.15); NEUTROPHILS PERCENT AUTO 88 % (41-73); NRBC ABSOLUTE 0.03 K/mm3 (0.00-0.02); NRBC Auto 0.2 /100 WBC (0.0-0.2); Platelet Count 300 K/mm3 (150-400); RDW Coefficient Variation 15.6 % (11.7-14.2); RDW Standard Deviation 49.8 fL (35.1-46.3); Red Blood Cell Count 2.13 M/mm3 (3.80-5.20); White Blood Cell Count 12.92 K/mm3 (4.00-11.30)
[2022-07-12 16:41] LABS: Appearance, Urine Clear (Clear); Bilirubin, Urine Neg (Neg); Blood, Urine 1+ (Neg); Color, Urine Yellow (P-Yellow); Glucose Qualitative, Urine Neg (Neg); Ketones, Urine Neg (Neg); Leukocyte Esterase, Urine Neg (Neg); Nitrite, Urine Neg (Neg); Protein, Urine 1+ (Neg); Urobilinogen, Urine NORM (Normal)
[2022-07-12 16:53] LABS: Albumin, Blood 3.2 g/dL (3.4-5.0); Albumin/Globulin Ratio 1.1 (0.8-1.8); Bilirubin, Total 0.2 mg/dL (0.1-1.0); Bun/Creatinine Ratio 17.9 (12.0-20.0); Calcium, Blood 9.4 mg/dL (8.5-10.1); Creatinine, Blood 1.12 mg/dL (0.40-1.00); Globulin, Blood 2.9 g/dL (2.2-4.0); Potassium, Blood 4.5 mmol/L (3.5-5.5); Total Protein, Blood 6.1 g/dL (6.4-8.2)
[2022-07-12 16:59] LABS: Bacteria Few /hpf; Squamous Epithelial Cells Mod /hpf (Few); White Blood Cells, Urine 0-2 /hpf (0-5)
[2022-07-12 17:11] LABS: Hemoglobin 5.2 g/dL (11.5-16.0)
== END 2022-07-12 18:46 | disposition home or self-care (01) ==
LOC: ER 15:40
PROVIDERS: Emergency Medicine
DX: R53.1 Weakness (principal); R09.02 Hypoxemia; D64.9 Anemia, unspecified; I10 Essential (primary) hypertension; J44.9 Chronic obstructive pulmonary disease, unspecified; I25.10 Atherosclerotic heart disease of native coronary artery without angina pectoris; Z88.2 Allergy status to sulfonamides; Z88.0 Allergy status to penicillin; Z88.1 Allergy status to other antibiotic agents; Z91.09 Other allergy status, other than to drugs and biological substances; Z79.899 Other long term (current) drug therapy; Z86.73 Personal history of transient ischemic attack (TIA), and cerebral infarction without residual deficits; Z95.1 Presence of aortocoronary bypass graft
CPT/HCPCS: 36415; 51701; 71045; 74176; 80053; 81001; 85025; 93005; 93010; J2405; J7030

== ENCOUNTER 2022-07-13 11:30 | Observation (INO) | payer OTHER ==
[~2022-07-13] VITALS: Ht 162.6 cm; Wt 52.3 kg
[2022-07-13 12:14] LABS: BASOPHILS ABSOLUTE AUTO 0.03 K/mm3 (0.00-0.23); BASOPHILS PERCENT AUTO 0 % (0-2); EOSINOPHILS ABSOLUTE AUTO 0.01 K/mm3 (0.00-0.68); EOSINOPHILS PERCENT AUTO 0 % (0-6); IMMATURE GRAN ABSOLUTE AUTO 0.11 K/mm3 (0.00-0.10); IMMATURE GRAN PERCENT AUTO 1 % (0-1); LYMPHOCYTES ABSOLUTE AUTO 1.05 K/mm3 (0.84-5.20); LYMPHOCYTES PERCENT AUTO 6 % (21-46); MONOCYTES ABSOLUTE AUTO 1.09 K/mm3 (0.16-1.47); MONOCYTES PERCENT AUTO 7 % (4-13); Mean Corpuscular HGB 24.9 pg (26.0-34.0); Mean Corpuscular Volume 86 fL (80-100); Mean Platelet Volume 11.1 fL (9.1-12.4); NEUTROPHILS ABSOLUTE AUTO 13.99 K/mm3 (1.96-9.15); NEUTROPHILS PERCENT AUTO 86 % (41-73); NRBC ABSOLUTE 0.04 K/mm3 (0.00-0.02); NRBC Auto 0.2 /100 WBC (0.0-0.2); Platelet Count 267 K/mm3 (150-400); RDW Coefficient Variation 15.9 % (11.7-14.2); Red Blood Cell Count 1.89 M/mm3 (3.80-5.20); White Blood Cell Count 16.28 K/mm3 (4.00-11.30)
[2022-07-13 12:30] LABS: Albumin/Globulin Ratio 0.9 (0.8-1.8); Bilirubin, Total 0.5 mg/dL (0.1-1.0); Bun/Creatinine Ratio 14.4 (12.0-20.0); Calcium, Blood 8.8 mg/dL (8.5-10.1); Creatinine, Blood 1.18 mg/dL (0.40-1.00); Globulin, Blood 3.2 g/dL (2.2-4.0); Total Protein, Blood 6.2 g/dL (6.4-8.2)
[2022-07-13 12:35] LABS: Hemoglobin 4.7 g/dL (11.5-16.0)
[2022-07-13 12:36] LABS: Hematocrit 16.2 % (33.0-51.0)
[2022-07-13 16:32] LABS: Hematocrit 23.5 % (33.0-51.0); Hemoglobin 7.5 g/dL (11.5-16.0)
--- NOTE | 2022-07-13 16:50 | NUR ---
PT ARRIVED TO UNIT @ THIS TIME, PROTONICS INFUSING. SLIDE TRANSFER OVER. VSS. A&OX3-4.
[2022-07-13 22:20] LABS: Hematocrit 23.6 % (33.0-51.0); Hemoglobin 7.4 g/dL (11.5-16.0)
--- NOTE | 2022-07-14 04:16 | NUR ---
PT IS A/OX3, PLEASANT AND COOPERATIVE, PT IS DEVELOPLY DELAYED. PT APPEARS TO BE BREATHING EASILY ON RA AT THIS TIME. PT WAS MEDICATED WITH TYLENOL PER HER REQUEST FOR PAIN. PT WAS REPOSITIONED T/O THE NIGHT. CALL LIGHT IN REACH, WILL CONTINUE TO MONITOR AND ASSESS FOR CHANGES
[2022-07-14 05:07] LABS: BASOPHILS ABSOLUTE AUTO 0.03 K/mm3 (0.00-0.23); BASOPHILS PERCENT AUTO 0 % (0-2); EOSINOPHILS ABSOLUTE AUTO 0.06 K/mm3 (0.00-0.68); EOSINOPHILS PERCENT AUTO 1 % (0-6); Hematocrit 22.7 % (33.0-51.0); Hemoglobin 7.3 g/dL (11.5-16.0); IMMATURE GRAN ABSOLUTE AUTO 0.03 K/mm3 (0.00-0.10); IMMATURE GRAN PERCENT AUTO 0 % (0-1); LYMPHOCYTES ABSOLUTE AUTO 1.85 K/mm3 (0.84-5.20); LYMPHOCYTES PERCENT AUTO 17 % (21-46); MONOCYTES PERCENT AUTO 8 % (4-13); Mean Corpuscular HGB 27.4 pg (26.0-34.0); Mean Corpuscular HGB Conc 32.2 g/dL (31.5-36.5); Mean Corpuscular Volume 85 fL (80-100); Mean Platelet Volume 11.3 fL (9.1-12.4); NEUTROPHILS ABSOLUTE AUTO 7.94 K/mm3 (1.96-9.15); NEUTROPHILS PERCENT AUTO 73 % (41-73); NRBC ABSOLUTE 0.03 K/mm3 (0.00-0.02); NRBC Auto 0.3 /100 WBC (0.0-0.2); Platelet Count 207 K/mm3 (150-400); RDW Coefficient Variation 15.1 % (11.7-14.2); RDW Standard Deviation 46.6 fL (35.1-46.3); Red Blood Cell Count 2.66 M/mm3 (3.80-5.20); White Blood Cell Count 10.81 K/mm3 (4.00-11.30)
[2022-07-14 05:47] LABS: Bun/Creatinine Ratio 14.7 (12.0-20.0); Calcium, Blood 8.1 mg/dL (8.5-10.1); Creatinine, Blood 0.96 mg/dL (0.40-1.00); Potassium, Blood 4.2 mmol/L (3.5-5.5)
[2022-07-14 10:06] LABS: Hematocrit 22.9 % (33.0-51.0); Hemoglobin 7.2 g/dL (11.5-16.0)
--- NOTE | 2022-07-14 12:03 | NUR ---
SUMMARY; PATIENT IS DISCHARGED BACK TO [facility]. REPORT TO BULMARO AT [facility], ALL QUESTIONS ADDRESSED. OK FOR PATIENT TO RETURN TO HOME TODAY PER BULMARO. ATTEMPT TO CALL SISTER RICHARD TO NOTIFY THAT SISTER BEING DISCHARGED. MESSAGE LEFT TO CALL BACK.
== END 2022-07-14 10:36 | disposition home or self-care (01) ==
LOC: ER 11:30 → MEDS 11:31
PROVIDERS: Emergency Medicine; ADMIT Internal Medicine
DX: D64.9 Anemia, unspecified (principal); I10 Essential (primary) hypertension; E78.5 Hyperlipidemia, unspecified; F32.A Depression, unspecified; J44.9 Chronic obstructive pulmonary disease, unspecified; I25.10 Atherosclerotic heart disease of native coronary artery without angina pectoris; F03.90 Unspecified dementia, unspecified severity, without behavioral disturbance, psychotic disturbance, mood disturbance, and anxiety; G40.909 Epilepsy, unspecified, not intractable, without status epilepticus; Z88.2 Allergy status to sulfonamides; Z88.0 Allergy status to penicillin; Z95.1 Presence of aortocoronary bypass graft; Z98.51 Tubal ligation status; Z88.1 Allergy status to other antibiotic agents
CPT/HCPCS: 36415; 80048; 80053; 85014; 85018; 85025; 86850; 86900; 86901; 86923; 93005; 93010; A9270; C9113; J7030; P9016